=== PATIENT | male | born 1965 | race Caucasian/White ===

== ENCOUNTER 2016-07-19 09:02 | Inpatient (IN) | payer MEDICAID ==
[2016-07-19] MEDS ORDERED: Pantoprazole IV* 40 MG IV ONE (09:28)
[2016-07-19] MEDS ORDERED: NS 0.9% 1000 ML* 1,000 ML IV ONE (09:28)
[2016-07-19] MEDS ORDERED: LORazepam INJ* 2 MG/ML 1 ML VIAL IV PUSH ONE ×2 (09:30→10:03)
[2016-07-19 09:53] LABS: Hematocrit 30 % (42-52); Hemoglobin 10.1 g/dl (14.0-18.0); Mean Corpuscular HGB Conc 33 g/dl (31-36); Mean Corpuscular Hemoglobin 31 pg (27-31); Mean Corpuscular Volume 94 fL (80-94); Mean Platelet Volume 8 um3 (7.4-10.4); Red Blood Count 3.24 10^6/ul (4.0-5.4); Red Cell Distribution Width 17 % (10.5-15); White Blood Count 6.8 10^3/ul (3.5-10.8)
[2016-07-19] MEDS ORDERED: Thiamine IV* 100 MG, Folic Acid IV* 1 MG, Multiple Vitamin IV ADULT* 10 ML in NS 0.9% 1... IV ONE (10:03)
[2016-07-19 10:10] LABS: Albumin 2.7 g/dL (3.2-5.2); BUN/Creatinine Ratio 10.8 (8-20); C Reactive Protein 45.61 mg/L (< 5.00); Calcium 7.9 mg/dL (8.6-10.3); EGFR African American 167.9 (>60); EGFR Non-African American 130.6 (>60); Globulin 6.2 g/dL (2-4); Magnesium 2.1 mg/dL (1.9-2.7); Potassium 3.4 mmol/L (3.5-5.0); Total Bilirubin 1.4 mg/dL (0.2-1.0); Total Protein 8.9 g/dL (6.4-8.9)
[2016-07-19 10:12] LABS: Troponin I 0.01 ng/mL (<0.04)
[2016-07-19] MEDS ORDERED: Iohexol 300* (CONTRAST) 10 ML SDV IV ONE (11:43)
--- NOTE | 2016-07-19 12:35 | RAD ---
INDICATION: Abdominal pain, chronic constipation and abdominal bloating. COMPARISON: There are no prior studies available for comparison. TECHNIQUE: A CT scan of the abdomen and pelvis was performed with intravenous and oral contrast following intravenous injection of 130 ml of Omnipaque 300 nonionic contrast. Contiguous axial sections were obtained from the lung bases through the symphysis pubis. Images were reconstructed in the coronal and sagittal planes. FINDINGS: Images through the lung bases demonstrate small dependent bilateral lower lobe infiltrates. No pleural effusion is present. The liver is moderately enlarged and decreased in density. The liver has a nodular contour consistent with cirrhotic morphology. There are 2 hypodense lesions present in the inferior portion of the right hepatic lobe located adjacent to each other measuring 1.5 x 1.1 cm in size each possibly representing cysts. On the delayed images there appear to be multiple small hepatic nodules. No intra or extra hepatic ductal distention is present. The portal vein appears patent. The gallbladder is distended. No calcific gallstones are seen. No gallbladder wall thickening is appreciated. The spleen is mildly enlarged without focal abnormality. There appear to be varices within the splenic hilar region. The pancreas appears to be within normal limits in size without focal abnormality or ductal distention. The kidneys and adrenal glands are normal in size. No hydronephrosis is seen. No significant focal renal abnormality is seen. The aorta is normal in caliber with mild calcific plaque present. No significant enlarged retroperitoneal lymph nodes are seen. The stomach, small and large bowel appear nondistended. The appendix is within normal limits. There is no evidence for diverticulitis or colitis. There is mild to moderate descending and sigmoid diverticulosis. There is a small to moderate amount of free intraperitoneal fluid present throughout the abdomen and pelvis. No free intraperitoneal air is seen. No significant focal osseous abnormality is seen. IMPRESSION: 1. HEPATOSPLENOMEGALY AND FINDINGS CONSISTENT WITH CIRRHOSIS. IN ADDITION THERE ARE MULTIPLE SMALL HEPATIC NODULES NOTED ON DELAYED IMAGING. RECOMMEND AN MRI OF THE LIVER WITHOUT AND WITH CONTRAST FOR FURTHER EVALUATION. 2. SPLENIC VARICES CONSISTENT WITH PORTAL HYPERTENSION. 3. DISTENDED GALLBLADDER, RECOMMEND A RIGHT UPPER QUADRANT ULTRASOUND FOR FURTHER EVALUATION. 4. ASCITES.
[2016-07-19] MEDS ORDERED: Phytonadione Oral Solution* 5 MG/25 ML UDC PO ONE (12:54)
--- NOTE | 2016-07-19 13:06 | ED ---
Terrell Reyes Salem, scribed for Darvin Silva MD on 07/19/16 at 0924 . Abdominal Pain/Male - HPI Summary HPI Summary: Patient is a 51 y/o male who presents to the ED with constipation since 3-4 weeks. He reports a distended abd, 5-7/10 intermittent lower abd pain, occasional gas, diuretic BM, chills, loss of appetite, and dark colored stool , but denies fever, ecchymosis, SOB, CP, or epistaxis that has changed from baseline. He states his gums are bleeding, but he has not had his teeth cleaned in a long time. He also states that, in the last couple of weeks, he has been getting winded while walking. Pt denies any recent travels or past SHx of the abd. He states that he has drunk about a gallon of water and has tried Senna and Prune juice with little relief. Pt no longer smokes, but has a substantial EtOH hx. He reports that he was consuming EtOH all day long in the month of May. 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 - History of Current Complaint Chief Complaint: EDAbdPain Stated Complaint: ABD PAIN/CONSTIPATION Time Seen by Provider: 07/19/16 09:15 Hx Obtained From: Patient, Family/Dielectric Tester - . Onset/Duration: Gradual Onset, Lasting Weeks, Still Present Timing: Intermittent - Pain. Severity Initially: Moderate Severity Currently: Moderate Pain Intensity: 5 Pain Scale Used: 0-10 Numeric Location: Discrete At: LUQ, Discrete At: LLQ Radiates: No Aggravating Factor(s): Nothing Alleviating Factor(s): Nothing Associated Signs And Symptoms: Negative: Fever, Chest Pain - Allergies/Home Medications Allergies/Adverse Reactions: Allergies Allergy/AdvReac Type Severity Reaction Status Date / Time No Known Allergies Allergy Verified 07/19/16 09:19 PMH/Surg Hx/FS Hx/Imm Hx Previously Healthy: Yes Infectious Disease History: No Infectious Disease History: Denies: Traveled Outside the [place] in Last 30 Days - Family History Known Family History: Positive: Cardiac Disease, Diabetes, Other - CA. - Social History Alcohol Use: Daily Alcohol Amount: 5-7 drinks daily Hx Substance Use: No Substance Use Type: Reports: None Smoking Status (MU): Former Smoker - Quit in 2000. Review of Systems Positive: Chills. Negative: Fever Positive: Other - Bleeding gums. No epistaxis. No ecchymosis. Negative: Chest Pain Negative: Shortness Of Breath Positive: Abdominal Pain - Lower. , Other - Distended abd. Occasional gas. Diuretic BM." Loss of appetite. Positive: other - Dark colored stool. All Other Systems Reviewed And Are Negative: Yes Physical Exam Triage Information Reviewed: Yes Vital Signs On Initial Exam: Initial Vitals Temp Pulse Resp BP Pulse Ox 98.4 F 118 16 154/98 100 07/19/16 09:06 07/19/16 09:06 07/19/16 09:06 07/19/16 09:06 07/19/16 09:06 Vital Signs Reviewed: Yes Appearance: Positive: No Pain Distress Skin: Positive: Warm, Skin Color Reflects Adequate Perfusion Head/Face: Positive: Normal Head/Face Inspection Eyes: Positive: Normal, EOMI ENT: Positive: Other - some bleeding from gingiva Neck: Positive: Supple, Nontender Respiratory/Lung Sounds: Positive: Clear to Auscultation, Breath Sounds Present Cardiovascular: Positive: Normal, Tachycardia. Negative: Murmur Abdomen Description: Positive: Distended, Other: - rectal exam with dark colored stool no gross blood.. Negative: Guarding Musculoskeletal: Positive: Normal, Strength/ROM Intact, Edema Left - trace, Edema Right - trace Neurological: Positive: Normal, Sensory/Motor Intact, Alert, Oriented to Person Place, Time, CN Intact II-III - [place] Coma Scale Coma Scale Total: 15 Diagnostics - Vital Signs Vital Signs Temp Pulse Resp BP Pulse Ox 07/19/16 09:12 98.9 F 113 18 149/98 98 07/19/16 09:06 98.4 F 118 16 154/98 100 - Laboratory Result Diagrams: 07/19/16 09:30 07/19/16 09:30 Lab Statement: Any lab studies that have been ordered have been reviewed, and results considered in the medical decision making process. - CT ABD/PELVIS CT Interpretation Completed By: Radiologist - IMPRESSION: 1. HEPATOSPLENOMEGALY AND FINDINGS CONSISTENT WITH CIRRHOSIS. IN ADDITION THERE ARE MULTIPLE SMALL HEPATIC NODULES NOTED ON DELAYED IMAGING. RECOMMEND AN MRI OF THE LIVER WITHOUT AND WITH CONTRAST FOR FURTHER EVALUATION. 2. SPLENIC VARICES CONSISTENT WITH PORTAL HYPERTENSION. 3. DISTENDED GALLBLADDER, RECOMMEND A RIGHT UPPER QUADRANT ULTRASOUND FOR FURTHER EVALUATION. 4. ASCITES. - EKG 0917 EKG Interpretation: Sinus tachycardia @ 116 bpm. No STEMI. Abdominal Pain Fem Course/Dx - Course Course Of Treatment: 51 y/o male who presents with constipation since 3-4 weeks. He reports a distended abd, 5-7/10 intermittent lower abd pain, occasional gas, diuretic BM, chills, loss of appetite, bleeding gums, and dark colored stool, but denies fever, ecchymosis, SOB, CP, or epistaxis. Pt has a substantial EtOH hx. He received IV fluids, Lorazepam, Thiamine, Iohexol, and Pantoprazole. EKG reveals sinus tachycardia @ 116 bpm and no STEMI. CT reveals, per radiology, 1. Hepatosplenomegaly and findings consistent with cirrhosis. In addition there are. Multiple small hepatic nodules noted on delayed imaging. Recommend an mri of the liver without and with contrast for further evaluation. 2. Splenic varices consistent with portal hypertension. 3. Distended gallbladder , recommend a right upper quadrant ultrasound for further evaluation. 4. Ascites. - Diagnoses Provider Diagnoses: Alcohol withdrawal, Cirrhosis of liver - Provider Notifications Discussed Care Of Patient With: Dr Amado for admission Time Discussed With Above Provider: 13:05 - Critical Care Time Critical Care Time: 30-74 min - total critical care time 45 minutes. The patient was tremulous, and shaking and in withdrawl from ETOH along with sinus tachycardia. Discharge - Discharge Plan Condition: Fair Disposition: ADMITTED TO [facility] The documentation as recorded by the Terrell peter Salem accurately reflects the service I personally performed and the decisions made by , Darvin Silva MD.
[2016-07-19 13:32] LABS: PCO2 Arterial 35 mmHg (35-45)
[2016-07-19 13:35] LABS: Urine Bilirubin Negative (Negative); Urine Glucose Negative (Negative); Urine Nitrite Negative (Negative)
[2016-07-19 15:22] LABS: Albumin 2.3 g/dL (3.2-5.2); BUN/Creatinine Ratio 8.9 (8-20); Calcium 7.3 mg/dL (8.6-10.3); EGFR African American 199.4 (>60); EGFR Non-African American 155.1 (>60); Globulin 5.2 g/dL (2-4); Potassium 3.3 mmol/L (3.5-5.0); Total Bilirubin 1.5 mg/dL (0.2-1.0); Total Protein 7.5 g/dL (6.4-8.9)
[2016-07-19] MEDS: LORazepam TAB(*) 1 MG PO SCH (16:11)
--- NOTE | 2016-07-19 17:25 | HP ---
HISTORY AND PHYSICAL: DATE OF ADMISSION: 07/19/16 PRIMARY CARE PHYSICIAN: The patient has no PCP. CHIEF COMPLAINT: Abdominal distention, constipation. HISTORY OF PRESENT ILLNESS: Mr. Cross is a 51-year-old man with little medical followup and reports no past medical history who presents to the hospital with 3 to 4 weeks of abdominal distention and occasional constipation. History is taken primarily from the patient's as the patient is having difficulty staying awake during the examination. Since the patient's symptoms began around 3 to 4 weeks ago, where he noticed his abdomen becoming more distended and also some mild lower extremity swelling. He felt constipated and says he would try senna, prune juice and some other medications, which was seemed to work occasionally; however, the distention and discomfort would shortly recur. His symptoms have been persistent over this time and he has also had some decreased p.o. intake, although no nausea and vomiting. His denies any confusion, although he has been sleeping a lot throughout the day, snoring very loudly at times. The patient and his have a daughter, who is currently in the hospital, so there has been a lot of stress lately. The patient states he has been drinking probably at least 5 to 6 drinks a day, which are usually glasses of wine. He has been drinking heavily for years now. The patient's states, he occasionally had some chills over the past days and some slight warmth; however, no temperature was taken and it seemed mild at that time and resolved with aspirin. The patient denies any history of liver disease and never had any alcohol withdrawal and has never been hospitalized before. The patient went to [facility] today and they were concerned and thought he may have an enlarged liver and told him to come to the hospital for further evaluation. The patient states his last drink was around 3 to 4 a.m. early this morning on 07/19/16. PAST MEDICAL HISTORY: Negative. PAST SURGICAL HISTORY: None. HOME MEDICATIONS: None, the patient has no PCP. ALLERGIES: The patient reports no known drug allergies. FAMILY HISTORY: Significant for his father with diabetes. REVIEW OF SYSTEMS: A 12-point review of systems is significant for lower extremity edema, gingival bleeding and the remainder of the 12-point systems is pertinent for the symptoms listed in the HPI. PHYSICAL EXAMINATION GENERAL: The patient is a middle-aged disheveled, man lying in bed, awakens at voice, but is lethargic and will quickly fall back to sleep. VITAL SIGNS: On admission, temperature 98.4, heart rate of 118, O2 saturation 100%, blood pressure 154/98. HEENT: Pupils are equal, round, and reactive light and accommodation. Possibly some minimal scleral icterus. Dry mucous membranes. The patient has dry blood on his gums and tongue and posterior oropharynx. LUNGS: Clear to auscultation bilaterally. No wheezes, rales, or rhonchi. CARDIOVASCULAR: Tachycardic. No murmurs, gallops, or rubs. ABDOMEN: Soft, distended, nontender to palpation. The patient with hepatosplenomegaly and positive fluid wave. EXTREMITIES: Mild lower extremity edema. NEURO: The patient is lethargic, awakens to voice and is alert and oriented x3 ; however, quickly falls back to sleep. No asterixis is noted. No neurological deficits. LABS AND DIAGNOSTICS: White blood cell count of 6.8, hematocrit of 30, platelets of 124. INR of 1.47. Sodium of 136, potassium 3.4, chloride of 106, carbon dioxide of 25, BUN of 7, creatinine of 0.65, glucose of 109, lactic acid of 1.5, calcium of 7.9, total bilirubin of 1.4, AST of 157, ALT of 34, alk phos of 250. Troponin of 0.01, CRP of 45, lipase of 125, serum alcohol 229. EKG personally reviewed shows sinus tachycardia, no acute ischemic changes. CT of the abdomen and pelvis shows hepatosplenomegaly and findings consistent with cirrhosis. In addition, there are multiple small hepatic nodules noted on delayed imaging. Recommended MRI of liver with and without contrast for further evaluation of splenic varices consistent with portal hypertension, distended gallbladder; ascites, which is mild to moderate. ASSESSMENT AND PLAN: New onset cirrhosis, likely secondary to alcohol abuse and alcoholic hepatitis in a 51-year-old man with no reported past medical history. 1. Cirrhosis, ascites: CT imaging consistent with cirrhosis, which is likely due to the patient's alcohol intake. With the patient's new ascites, he will need a diagnostic paracentesis, which has been ordered and would likely happen tomorrow. I will give the patient some vitamin K for his mildly elevated INR. He is showing some signs of synthetic liver dysfunction between the INR and thrombocytopenia and a low albumin. With the patient's lethargy, I will order a blood gas as well as an ammonia. We will continue to trend his LFTs for now. I have stressed the importance of complete alcohol cessation from this point, which he is agreeable to. Placed a social work consult. I will hold off on any diuretics at this point, can reevaluate tomorrow. We will hold off on any additional imaging for now in regards to the liver lesions, I will send off an AFP. 2. Alcohol abuse and early withdrawal symptoms: The patient still has some EtOH in his system at this point; however, I am certain he will withdrawal over the next day or two. We will write for [place] protocol with ibis Perkins and will continue thiamine, folate and multivitamin. The patient does have a mild biochemical pancreatitis. We will keep him just on clear liquids for now. Can recheck a lipase in the morning. He is not endorsing any epigastric pain at this time. 3. Gingival bleeding: Likely a combination of poor dentition and possibly due to his thrombocytopenia, although, it is not severe. The states that this has been going on for months with near constant oozing from his gums. He will need a dental appointment as an outpatient. 4. DVT prophylaxis: SCDs. 5. Code status: The patient is full code. The patient's surrogate decision maker is his , Taty Cross, phone number . TIME SPENT: Total time spent on this admission 50 minutes with over half the time spent [id number] with the patient counseling and coordinating care. [id number]/[facility] #: [id number] BRODERICK
[2016-07-19] MEDS: Morphine INJ* 2 MG/ML 1 ML SYRINGE IV PRN (19:21)
[2016-07-20] MEDS: LORazepam TAB(*) 1 MG PO SCH ×8 (00:46→22:58)
[2016-07-20 07:53] LABS: Albumin 2.6 g/dL (3.2-5.2); BUN/Creatinine Ratio 7.5 (8-20); Calcium 8.2 mg/dL (8.6-10.3); EGFR African American 162.1 (>60); EGFR Non-African American 126.1 (>60); Globulin 6.1 g/dL (2-4); Potassium 3.7 mmol/L (3.5-5.0); Total Bilirubin 2.7 mg/dL (0.2-1.0); Total Protein 8.7 g/dL (6.4-8.9)
[2016-07-20 08:16] LABS: Hematocrit 29 % (42-52); Hemoglobin 9.7 g/dl (14.0-18.0); Mean Corpuscular HGB Conc 33 g/dl (31-36); Mean Corpuscular Hemoglobin 31 pg (27-31); Mean Corpuscular Volume 94 fL (80-94); Mean Platelet Volume 8 um3 (7.4-10.4); Red Blood Count 3.12 10^6/ul (4.0-5.4); Red Cell Distribution Width 17 % (10.5-15); White Blood Count 6.8 10^3/ul (3.5-10.8)
[2016-07-20] MEDS: Thiamine TAB* 100 MG TAB PO SCH (08:39)
[2016-07-20] MEDS: Folic Acid TAB* 1 MG PO SCH (08:39)
[2016-07-20] MEDS: Multivitamins/Minerals TAB PO SCH (08:39)
[2016-07-20] MEDS: ceFAZolin 1 GM in Dextrose (*) 1 GM/50 ML BAG IVPB SCH ×3 (09:58→23:00)
--- NOTE | 2016-07-20 14:35 | RAD ---
INDICATION: New cirrhosis, ascites. COMPARISON: Comparison is made with a prior CT of the abdomen and pelvis from one day earlier. TECHNIQUE: The benefits and risks of the procedure were explained to the patient. The patient consented to the exam. A timeout was performed before beginning the procedure. Multiple images of the abdomen were obtained. There was a moderate of ascites within the abdomen and pelvis. The largest pocket of fluid was chosen for the paracentesis which was in the left lower quadrant. The patient was prepped and draped in the usual sterile fashion. The patient's anterior abdominal wall was anesthetized with 1% lidocaine. A small skin neck was made to admit the paracentesis needle and catheter. Approximately 2 L of a serous fluid was removed. The patient tolerated the procedure well without incident. IMPRESSION: ULTRASOUND-GUIDED PARACENTESIS.
[2016-07-20 15:16] LABS: Body Fluid WBC 359 /mcL
--- NOTE | 2016-07-20 15:55 | PN ---
Subjective Date of Service: 07/20/16 Interval History: Seen and examined with at bedside Feels tremulous and anxious denies [place]OR[place], N/V, LH, CP, hallucinations Objective Active Medications: Folic Acid (Folvite Tab*) 1 mg PO DAILY [facility] Last Admin: 07/20/16 08:39 Dose: Not Given Cefazolin Sodium/Dextrose (Kefzol 1 Gm In Dextrose Duplex (*)) 1 gm in 50 mls @ 200 mls/hr IVPB Q6H [facility] Last Admin: 07/20/16 09:58 Dose: 200 mls/hr Lorazepam (Ativan Tab(*)) 0 mg PO .PER WAM SCORE [facility] PRN Reason: Protocol Last Admin: 07/20/16 12:09 Dose: 3 mg Morphine Sulfate (Morphine Inj (Syringe)*) 2 mg IV Q4H PRN PRN Reason: PAIN Last Admin: 07/19/16 19:21 Dose: 2 mg Multivitamins/Minerals (Theragran/Minerals Tab*) 1 tab PO DAILY [facility] Last Admin: 07/20/16 08:39 Dose: Not Given Thiamine HCl (Vitamin B-1 Tab*) 100 mg PO DAILY [facility] Last Admin: 07/20/16 08:39 Dose: Not Given Vital Signs 07/19/16 07/19/16 07/19/16 15:59 16:11 17:54 Temperature 98.5 F 99.1 F Pulse Rate 106 108 Respiratory 18 24 20 Rate Blood Pressure 154/89 140/72 (mmHg) O2 Sat by Pulse 95 93 Oximetry 07/19/16 07/19/16 07/19/16 18:11 19:21 19:42 Temperature Pulse Rate Respiratory 20 20 20 Rate Blood Pressure (mmHg) O2 Sat by Pulse Oximetry 07/19/16 07/19/16 07/19/16 20:21 20:45 22:53 Temperature 99.2 F 98.4 F Pulse Rate 100 94 Respiratory 19 20 18 Rate Blood Pressure 132/78 155/69 (mmHg) O2 Sat by Pulse 95 95 Oximetry 07/20/16 07/20/16 07/20/16 00:09 00:46 01:53 Temperature 99.4 F 100.0 F Pulse Rate 114 99 Respiratory 20 19 18 Rate Blood Pressure 158/94 120/70 (mmHg) O2 Sat by Pulse 95 96 Oximetry 07/20/16 07/20/1607/20/17 02:46 03:46 04:56 Temperature 99.2 F Pulse Rate 110 Respiratory 20 20 20 Rate Blood Pressure 152/73 (mmHg) O2 Sat by Pulse 98 Oximetry 07/20/16 07/20/16 07/20/16 06:22 06:43 07:26 Temperature 98.8 F 98.2 F Pulse Rate 115 115 Respiratory 20 20 20 Rate Blood Pressure 160/69 137/68 (mmHg) O2 Sat by Pulse 97 93 Oximetry 07/20/16 07/20/16 07/20/16 08:00 08:37 10:17 Temperature Pulse Rate 107 Respiratory 18 18 Rate Blood Pressure (mmHg) O2 Sat by Pulse 95 Oximetry 07/20/16 07/20/16 07/20/16 10:37 12:09 14:09 Temperature Pulse Rate Respiratory 18 18 18 Rate Blood Pressure (mmHg) O2 Sat by Pulse Oximetry 07/20/16 15:01 Temperature 99.6 F Pulse Rate 117 Respiratory 26 Rate Blood Pressure 148/71 (mmHg) O2 Sat by Pulse 95 Oximetry Oxygen Devices in Use Now: None Appearance: tremulous, NAD Eyes: No Scleral Icterus, PERRLA Ears/Nose/Mouth/Throat: - - blood on lips, dry MM Respiratory: Symmetrical Chest Expansion and Respiratory Effort, Clear to Auscultation Cardiovascular: RRR, - - tachy Abdominal: NL Sounds; No Tenderness; No Distention, No Hepatosplenomegaly Lymphatic: No Cervical Adenopathy Extremities: No Edema, No Clubbing, Cyanosis Neurological: Alert and Oriented x 3, - - +tongue fasiculations and asterixisis Result Diagrams: 07/20/16 05:31 07/20/16 05:32 Microbiology and Other Data: Microbiology 07/20/16 14:00 Gram Stain - Final Body Fluid - Peritoneal 07/20/16 06:15 Stool Occult Blood ([place]) - Final Stool Assess/Plan/Problems-Billing Assessment: 51 yo M h/o etoh abuse p/w abdominal bloating found new onset cirrhosis, ascites , 1/4 bcx MSSA - Patient Problems (1) Cirrhosis Comment: In setting of EtOH Paracentesis 07/20, labs pending aldactone when stable (2) Alcohol withdrawal Comment: 1st episode c/w WAM (3) Bacteremia Comment: 1 out of 4 bottles potential contaminant will c/w cafazolin (4) DVT prophylaxis Comment: HSQ
[2016-07-20 16:05] LABS: Body Fluid Total Cells Counted 100
[2016-07-20 16:06] LABS: Body Fluid Appearance Clear
--- NOTE | 2016-07-20 21:18 | RAD ---
INDICATION: Cirrhosis. Evaluate gallbladder. COMPARISON: CT July 19, 2016 TECHNIQUE: Longitudinal and transverse scans of the right upper quadrant were obtained. Doppler interrogation of the hepatic and portal venous system was performed. FINDINGS: Liver: The liver is heterogeneous in echotexture. No discrete hepatic mass is identified. MR imaging was suggested on the basis of the earlier CT. The liver is enlarged measuring 24.1 in cephalocaudal dimension. Vessels: There is limited evaluation of the hepatic and portal venous vessels. The recent CT showed portal venous patency. There is a correction of flow in the intrahepatic portal branches. Bile ducts: There is no evidence of intrahepatic or extrahepatic ductal dilatation. The common duct measures 0.3 cm. Gallbladder: There is thickening of the gallbladder wall which could be related to ascites and hypoproteinemia. There is no evidence of cholelithiasis. Pancreas: The visualized pancreas appears normal Right kidney: The right kidney is normal in size and echogenicity. There are no masses or calculi. There is no evidence of hydronephrosis. The right kidney measures 12.9 x 5.3 x 6.4 cm. IVC and aorta: The aorta and superior vena cava appear normal. Fluid: There is ascites. Other: There is splenomegaly. The spleen measures 14.4 x 4.3 x 4.4 cm. IMPRESSION: Hepatosplenomegaly. Ascites. Gallbladder wall thickening may be related to ascites or hypoproteinemia. There is no evidence of cholelithiasis
[2016-07-20] MEDS: Heparin VIAL(*) 5000 UNITS/ML VIAL (FIVE THOUSAND) SUBCUT SCH (23:04)
[2016-07-21] MEDS ORDERED: Acetaminophen TAB* 325 MG PO PRN ×2 (00:24→11:02)
[2016-07-21] MEDS ORDERED: LORazepam INJ* 2 MG/ML 1 ML VIAL IV PUSH ONE ×2 (00:25→03:03)
[2016-07-21] MEDS: LORazepam TAB(*) 1 MG PO SCH ×3 (01:26→06:16)
[2016-07-21] MEDS ORDERED: LORazepam INJ* 2 MG/ML 1 ML VIAL ONE (03:05)
[2016-07-21] MEDS ORDERED: Ziprasidone IM INJ* 20 MG/ML VIAL IM ONE (03:39)
[2016-07-21] MEDS: ceFAZolin 1 GM in Dextrose (*) 1 GM/50 ML BAG IVPB SCH ×4 (04:53→21:10)
[2016-07-21] MEDS: Heparin VIAL(*) 5000 UNITS/ML VIAL (FIVE THOUSAND) SUBCUT SCH ×3 (06:21→21:10)
[2016-07-21 06:50] LABS: Hematocrit 27 % (42-52); Mean Corpuscular HGB Conc 33 g/dl (31-36); Mean Corpuscular Hemoglobin 31 pg (27-31); Mean Corpuscular Volume 93 fL (80-94); Mean Platelet Volume 9 um3 (7.4-10.4); Red Blood Count 2.94 10^6/ul (4.0-5.4); Red Cell Distribution Width 17 % (10.5-15); White Blood Count 7.3 10^3/ul (3.5-10.8)
[2016-07-21 07:07] LABS: Albumin 2.5 g/dL (3.2-5.2); BUN/Creatinine Ratio 13.4 (8-20); Calcium 8.1 mg/dL (8.6-10.3); Direct Bilirubin 1.9 mg/dL (0.03-0.18); EGFR African American 162.1 (>60); EGFR Non-African American 126.1 (>60); Globulin 5.8 g/dL (2-4); Indirect Bilirubin 1.3 mg/dL (0.3-1.0); Potassium 3.6 mmol/L (3.5-5.0); Total Bilirubin 3.2 mg/dL (0.2-1.0); Total Protein 8.3 g/dL (6.4-8.9)
--- NOTE | 2016-07-21 07:48 | RAD ---
HISTORY: Shortness of breath COMPARISONS: None VIEWS:1: Single frontal portable view of the chest at 12:48 AM FINDINGS: LINES AND TUBES: None. CARDIOMEDIASTINAL SILHOUETTE: The cardiomediastinal silhouette is normal for portable technique. PLEURA: The costophrenic angles are sharp. No pleural abnormalities are noted. LUNG PARENCHYMA: The lung volumes are low. There is minimal linear atelectasis versus pleural parenchymal scarring of the right lung base ABDOMEN: The upper abdomen is clear. There is no subphrenic gas. BONES AND SOFT TISSUES: No bone or soft tissue abnormalities are noted. IMPRESSION: LOW LUNG VOLUMES. NO ACTIVE CARDIOPULMONARY DISEASE.
[2016-07-21] MEDS: NS 0.9% 1000 ML* 1,000 ML IV SCH ×2 (08:43→14:39)
[2016-07-21] MEDS: Folic Acid TAB* 1 MG PO SCH (09:16)
[2016-07-21] MEDS: Multivitamins/Minerals TAB PO SCH (09:17)
[2016-07-21] MEDS: Thiamine TAB* 100 MG TAB PO SCH (09:17)
[2016-07-21] MEDS ORDERED: Propofol* 100 ML ONE (10:24)
[2016-07-21] MEDS ORDERED: fentaNYL* 50 MCG/ML 5 ML VIAL (250 MCG VIAL) ONE (10:24)
[2016-07-21] MEDS ORDERED: fentaNYL* 50 MCG/ML 2 ML VIAL (100 MCG VIAL) IV SLOW PU ONE (10:55)
[2016-07-21] MEDS ORDERED: Propofol* 10 MG/ML 20 ML BTL IV PUSH ONE (10:57)
[2016-07-21] MEDS ORDERED: Ondansetron INJ* 2 MG/ML VIAL IV PRN (11:02)
--- NOTE | 2016-07-21 11:46 | RAD ---
INDICATION: The patient is status post intubation and gastric tube placement COMPARISON: Chest x-ray dated July 20, 2016 TECHNIQUE: Single AP portable view of the chest was obtained. FINDINGS: Image quality is compromised due to the relative inferiority of a portable chest x-ray. Endotracheal tube terminates just below the level the clavicular heads 3.9 cm above the tanja. A gastric tube is seen below the level of the diaphragm with the tip terminating at the expected vicinity of the gastric antrum. The heart and mediastinum exhibit normal size and contour. The lungs are grossly clear. There is no evidence of a large pleural effusion. Visualized bones are normal for the patient's age. IMPRESSION: Interval placement of a properly positioned endotracheal and gastric tubes.
[2016-07-21] MEDS ORDERED: Phytonadione Oral Solution* 5 MG/25 ML UDC PO ONE (12:00)
[2016-07-21] MEDS: Multivitamins ADULT w/MIN LIQ* 15 ML UDC PO SCH (12:20)
[2016-07-21] MEDS: Chlorhexidine MOUTHWASH 0.12%* 15 ML UDC TOPICAL SCH ×4 (12:20→23:42)
[2016-07-21] MEDS: LANSOPRAZOLE G TUBE SCH (12:21)
--- NOTE | 2016-07-21 14:19 | PN ---
Progress Note - Progress Note Note: CRITICAL CARE MEDICINE PROCEDURE NOTE DATE: 07/21/16 TIME: 1030 SERVICE: Critical Care Medicine LOCATION OF PROCEDURE: ICU PROCEDURE: Endotracheal intubation PROCEDURALIST: Dr. West Consent obtain: Yes, consent from , procedure performed emergently Time out held: Not indicated INDICATION: Acute respiratory failure secondary to DTs. PROCEDURE: Oxygenation maintained and vitals monitored. Patient in supine position. Pre-medication with fentanyl 200mcg / propofol 50mg. Glidescope #3 inserted with Grade 1 view obtained. 8.0 endotracheal tube inserted to 24cm lip. Good chest rise with breath sounds appreciated in bilaterally lung reinoso. EtCO2 + color change. Portable chest x-ray with ett in good position. Patient otherwise tolerated well. Rangel West, DO
[2016-07-21] MEDS ORDERED: Magnesium Sulf 4 GM/100 ML IV* 4,000 MG/100 ML BAG IVPB ONE (15:42)
--- NOTE | 2016-07-21 15:48 | PN ---
Progress Note - Progress Note Note: CRITICAL CARE MEDICINE DATE: 07/21/16 TIME: 950 SUBJECTIVE: Patient seen and examined. Sent to ICU sec to further obtundation. Recivieved ativan for DT tx overnight and more obtunded today with withdrawal sx. PHYSICAL EXAM: Vital Signs: Reviewed. tachy, tachypnea Neurologic: awakens and follows some commands, C[place], but obtunded. HEENT: mm with dry blood, icteric, perrl Cardiovascular: distant, tachy Respiratory: coarse b/l, paradoxical breathing Abdomen: soft, mild distention, non appreciable fluid wave Extremities: warm Access: piv LABS: Reviewed. IMAGING: Reviewed. MEDICATIONS: Reviewed. ASSESSMENT: 51 M Acute etoh withdrawal/DTs Acute hypoxic resp failure sec to above Multifactorial encephalpathy Anemia of etoh abuse Coagulopathy sec to above Hyponatremia sec to above Malnutrition mod degree, sec to above PLAN: Neurologic: only recived low dose ativan for his degree of withdrawal and already obtunded with multifactorial encephalopathy. Early phase of withdrawal sympathetics and high brian response, as he presented with etoh level >220 and will need escalating rx and needs airway protection for such. propofol gtt. thiamine, vitamin replacements. Cardiovascular: Perfusing, can utilize some ivf today and then just via ogt Respiratory: intubation for airway understanding his course will only escalate. Already with likely aspiration and continued mm bleeding sec to plt qualitative dysfunction. Gastrointestinal: place ogt and start tf. f/u ammonia and need for lactulose as well as lft dysfunction which may still rise post etoh cessation Renal/Metabolic: f/u and replete lytes, zhao needed Infectious Disease: was placed on ancef for cutlure result. can keep for today and ensure cx neg prior to stopping. no other infectious signs. Hematology: mm bleeding sec to plt qualitative dysfunction. ddavp noty necessary yet. vitamin replacement. hsq Endocrine: f/u needs Musculoskeletal: bedrest today Psych/Social: updated Supportive and preventative care as ordered. SUP: ppi VTE prophylaxis: heparin Zhao catheter given critical illness, monitoring needs for accurate assessment of ADA and KDIGO criteria for critically ill patients and to avoid potential harms of urinary retention, skin breakdown/ulcers. Disposition: ICU Code Status: Full Critical Care Time: 45min Rangel West DO
--- NOTE | 2016-07-21 17:23 | PN ---
Subjective Date of Service: 07/21/16 Interval History: Seen and examined this AM on 4S and again in ICU lethargic, difficult to arouse wakes to sternal rub but cannot stay awake RR >30 Moved to ICU where he was intubated Objective Active Medications: Acetaminophen (Tylenol Tab*) 650 mg PO Q6H PRN PRN Reason: FEVER/PAIN Chlorhexidine Gluconate (Peridex Mouth Wash 0.12%*) 15 ml TOPICAL Q4H [facility] Last Admin: 07/21/16 14:39 Dose: 15 ml Fentanyl Citrate (Fentanyl*) 50 mcg IV SLOW PU Q4H PRN PRN Reason: PAIN Folic Acid (Folvite Tab*) 1 mg PO DAILY [facility] Last Admin: 07/21/16 09:16 Dose: Not Given Heparin Sodium (Porcine) (Heparin Vial(*)) 5,000 units SUBCUT Q8HR [facility] Last Admin: 07/21/16 14:43 Dose: 5,000 units Cefazolin Sodium/Dextrose (Kefzol 1 Gm In Dextrose Duplex (*)) 1 gm in 50 mls @ 200 mls/hr IVPB Q6H [facility] Last Admin: 07/21/16 14:43 Dose: 200 mls/hr Sodium Chloride (Ns 0.9% 1000 Ml*) 1,000 mls @ 150 mls/hr IV PER RATE [facility] Stop: 07/22/16 15:24 Last Admin: 07/21/16 14:39 Dose: 150 mls/hr Propofol (Diprivan*) 100 mls @ 11.202 mls/hr IV .(Initial Rate) ROMAN; 20 MCG/KG/ MIN PRN Reason: Protocol Magnesium Sulfate (Magnesium Sulf 4 Gm/100 Ml Iv*) 4,000 mg in 100 mls @ 33.333 mls/hr IVPB ONCE ONE Stop: 07/21/16 18:41 Last Admin: 07/21/16 16:25 Dose: 33.333 mls/hr Lansoprazole (Lansoprazole Susp Kit) 30 mg G TUBE DAILY [facility] Last Admin: 07/21/16 12:21 Dose: 30 mg Lorazepam (Ativan Inj*) 2 mg IV PUSH Q3H PRN PRN Reason: ANXIETY Morphine Sulfate (Morphine Inj (Syringe)*) 2 mg IV Q4H PRN PRN Reason: PAIN Last Admin: 04/19/17 19:21 Dose: 2 mg Multivitamins (Theragran W/Minerals Liq*) 15 ml PO DAILY [facility] Last Admin: 07/21/16 12:20 Dose: 15 ml Ondansetron HCl (Zofran Inj*) 4 mg IV Q6H PRN PRN Reason: NAUSEA Thiamine HCl (Vitamin B-1 Tab*) 100 mg G TUBE TID [facility] Vital Signs 07/20/16 07/20/16 07/20/16 18:01 18:17 18:23 Temperature 101.3 F Pulse Rate 108 Respiratory 28 22 26 Rate Blood Pressure 141/82 (mmHg) O2 Sat by Pulse 93 Oximetry 07/20/16 07/20/16 07/20/16 19:52 20:00 20:23 Temperature 97.5 F Pulse Rate 113 Respiratory 28 22 22 Rate Blood Pressure 148/90 (mmHg) O2 Sat by Pulse 96 Oximetry 07/20/16 07/20/16 07/20/16 20:25 21:52 22:25 Temperature 99.8 F Pulse Rate 116 Respiratory 22 36 40 Rate Blood Pressure 145/73 (mmHg) O2 Sat by Pulse 86 Oximetry 07/20/16 07/20/16 07/20/16 22:30 22:54 22:58 Temperature 99.9 F Pulse Rate Respiratory 40 40 Rate Blood Pressure (mmHg) O2 Sat by Pulse 94 Oximetry 07/21/16 07/21/16 07/21/16 00:06 00:41 00:58 Temperature Pulse Rate 130 Respiratory 41 35 40 Rate Blood Pressure 149/85 (mmHg) O2 Sat by Pulse 91 Oximetry 07/21/16 07/21/16 07/21/16 01:16 01:26 01:41 Temperature 100.4 F Pulse Rate 126 Respiratory 42 40 40 Rate Blood Pressure 154/89 (mmHg) O2 Sat by Pulse 96 Oximetry 07/21/16 07/21/16 07/21/16 03:10 03:26 03:43 Temperature 100.5 F Pulse Rate 127 Respiratory 40 40 42 Rate Blood Pressure 122/94 (mmHg) O2 Sat by Pulse 95 Oximetry 07/21/16 07/21/16 07/21/16 03:50 04:10 05:54 Temperature 98.9 F Pulse Rate 121 Respiratory 42 40 36 Rate Blood Pressure 153/82 (mmHg) O2 Sat by Pulse 93 Oximetry 07/21/16 07/21/16 07/21/16 07:19 08:00 09:34 Temperature 99.1 F Pulse Rate 118 Respiratory 28 22 Rate Blood Pressure 148/77 120/82 (mmHg) O2 Sat by Pulse 95 Oximetry 07/21/16 07/21/16 07/21/16 09:45 09:46 09:51 Temperature 98.3 F Pulse Rate 108 110 Respiratory 28 28 33 Rate Blood Pressure 119/88 120/82 (mmHg) O2 Sat by Pulse 96 97 Oximetry 07/21/16 07/21/16 07/21/16 10:00 10:02 11:00 Temperature Pulse Rate 116 94 Respiratory 33 30 12 Rate Blood Pressure 130/88 102/64 (mmHg) O2 Sat by Pulse 97 100 Oximetry 07/21/16 07/21/16 07/21/16 11:06 11:13 11:56 Temperature Pulse Rate Respiratory 15 15 19 Rate Blood Pressure (mmHg) O2 Sat by Pulse Oximetry 07/21/16 07/21/16 07/21/16 12:00 12:03 12:39 Temperature 98.3 F Pulse Rate 96 96 Respiratory 19 20 21 Rate Blood Pressure 81/48 81/50 (mmHg) O2 Sat by Pulse 96 96 Oximetry 07/21/16 07/21/16 07/21/16 13:00 13:19 13:32 Temperature Pulse Rate 89 Respiratory 21 23 Rate Blood Pressure 86/55 (mmHg) O2 Sat by Pulse 97 99 Oximetry 07/21/16 07/21/16 07/21/16 14:00 14:33 15:00 Temperature Pulse Rate 92 92 Respiratory 22 24 23 Rate Blood Pressure 94/57 90/62 (mmHg) O2 Sat by Pulse 98 97 Oximetry 07/21/16 07/21/16 07/21/16 15:16 16:00 16:10 Temperature Pulse Rate 94 Respiratory 26 25 27 Rate Blood Pressure 94/58 (mmHg) O2 Sat by Pulse 95 Oximetry 07/21/16 07/21/16 17:00 17:04 Temperature Pulse Rate 96 Respiratory 23 23 Rate Blood Pressure 89/51 (mmHg) O2 Sat by Pulse 96 Oximetry Oxygen Devices in Use Now: Nasal Cannula Appearance: lethargic Ears/Nose/Mouth/Throat: - - blood on lips and clots seen in OP Respiratory: Symmetrical Chest Expansion and Respiratory Effort, - - decreased in bases Cardiovascular: - - tachy, regular Abdominal: NL Sounds; No Tenderness; No Distention, No Hepatosplenomegaly Lymphatic: No Cervical Adenopathy Extremities: No Edema Neurological: - - AOx0 Result Diagrams: 07/21/16 06:27 07/21/16 06:27 Microbiology and Other Data: Microbiology 07/20/16 14:00 Gram Stain - Final Body Fluid - Peritoneal 07/20/16 06:15 Stool Occult Blood ([place]) - Final Stool Assess/Plan/Problems-Billing Assessment: 51 yo M h/o etoh abuse p/w abdominal bloating found new onset cirrhosis, ascites , 1/4 bcx MSSA, transferred to ICU with DTs and intubated for airway protection 07/21 - Patient Problems (1) Cirrhosis Comment: In setting of EtOH Paracentesis 07/20, no SBP aldactone when stable (2) Alcohol withdrawal Comment: 1st episode transferred to ICU no intubated (3) Bacteremia Comment: 1 out of 4 bottles potential contaminant will c/w cafazolin (4) DVT prophylaxis Comment: HSQ
[2016-07-21] MEDS: Propofol* 100 ML IV SCH (17:36)
[2016-07-21] MEDS: Thiamine TAB* 100 MG TAB G TUBE SCH (20:57)
[2016-07-21] MEDS: fentaNYL* 50 MCG/ML 2 ML VIAL (100 MCG VIAL) IV SLOW PU PRN (21:37)
[2016-07-22] MEDS: Morphine INJ* 2 MG/ML 1 ML SYRINGE IV PRN (00:47)
[2016-07-22] MEDS: Propofol* 100 ML IV SCH ×4 (00:58→22:08)
[2016-07-22] MEDS: LORazepam INJ* 2 MG/ML 1 ML VIAL IV PUSH PRN (01:19)
[2016-07-22] MEDS: fentaNYL* 50 MCG/ML 2 ML VIAL (100 MCG VIAL) IV SLOW PU PRN ×2 (01:46→20:40)
[2016-07-22] MEDS: ceFAZolin 1 GM in Dextrose (*) 1 GM/50 ML BAG IVPB SCH ×4 (04:03→21:20)
[2016-07-22] MEDS: Chlorhexidine MOUTHWASH 0.12%* 15 ML UDC TOPICAL SCH ×6 (04:03→23:19)
[2016-07-22] MEDS: Heparin VIAL(*) 5000 UNITS/ML VIAL (FIVE THOUSAND) SUBCUT SCH ×3 (05:28→21:20)
[2016-07-22 05:55] LABS: Hematocrit 24 % (42-52); Hemoglobin 7.9 g/dl (14.0-18.0); Mean Corpuscular HGB Conc 33 g/dl (31-36); Mean Corpuscular Hemoglobin 31 pg (27-31); Mean Corpuscular Volume 94 fL (80-94); Mean Platelet Volume 8 um3 (7.4-10.4); Red Blood Count 2.58 10^6/ul (4.0-5.4); Red Cell Distribution Width 18 % (10.5-15); White Blood Count 11.2 10^3/ul (3.5-10.8)
[2016-07-22 06:11] LABS: Albumin 2.2 g/dL (3.2-5.2); BUN/Creatinine Ratio 21.9 (8-20); Calcium 7.4 mg/dL (8.6-10.3); EGFR African American 107.1 (>60); EGFR Non-African American 83.3 (>60); Globulin 5.2 g/dL (2-4); Magnesium 3.1 mg/dL (1.9-2.7); Potassium 3.6 mmol/L (3.5-5.0); Total Bilirubin 2.2 mg/dL (0.2-1.0); Total Protein 7.4 g/dL (6.4-8.9)
[2016-07-22] MEDS: LANSOPRAZOLE G TUBE SCH (08:34)
[2016-07-22] MEDS: Folic Acid TAB* 1 MG PO SCH (08:35)
[2016-07-22] MEDS: Thiamine TAB* 100 MG TAB G TUBE SCH ×3 (08:35→20:21)
[2016-07-22] MEDS: Multivitamins ADULT w/MIN LIQ* 15 ML UDC PO SCH (08:35)
[2016-07-22] MEDS ORDERED: Furosemide IV* 10 MG/ML VIAL (40 MG) IV SLOW PU ONE (10:00)
[2016-07-22] MEDS ORDERED: Potassium Chloride LIQUID* 20 MEQ PACKET G TUBE ONE (10:00)
[2016-07-22] MEDS: Spironolactone TAB* 25 MG G TUBE SCH (10:14)
[2016-07-22] MEDS: LACTULOSE* 30 ML UDC NG TUBE SCH ×2 (10:14→20:21)
--- NOTE | 2016-07-22 10:38 | PN ---
Progress Note - Progress Note Note: CRITICAL CARE MEDICINE DATE: 07/22/16 TIME: 1000 SUBJECTIVE: Patient seen and examined. PHYSICAL EXAM: Vital Signs: Reviewed. one temp for fever spike yesterday Neurologic: awakens on low dose propofol, but weak and not following commands yet. HEENT: mm with dry blood, icteric sclera, perrl Cardiovascular: distant, tachy Respiratory: coarse b/l, paradoxical breathing still with neg pressure breaths, better now on cpap Abdomen: soft, mild distention, no appreciable fluid wave Extremities: warm Access: piv LABS: Reviewed. IMAGING: Reviewed. MEDICATIONS: Reviewed. ASSESSMENT: 51 M Acute etoh withdrawal/DTs Acute hypoxic resp failure sec to above Multifactorial encephalpathy, including hepatic Anemia of etoh abuse Coagulopathy sec to above Hyponatremia sec to above Malnutrition mod degree, sec to above Staph aureus bacteremia Aspiration pneumonitis Gingival bleeding PLAN: Neurologic: lowering propofol gtt. prns. has less sympathetics. thiamine, vitamin replacements. Cardiovascular: Perfusing, vol ok to a bit up. can start on diuertic needs. Respiratory: intubation for airway mainly and see how he can maintain on less sedation. may still need a few days. Gastrointestinal: tf. lfts stable. ammonia up and starting lactulose. add rifixamin if not improving quickly. Renal/Metabolic: f/u and replete lytes Infectious Disease: on ancef for SA. Source questionable, but certainly can be from his degee of gingival bleeding or even aspiration. Keep on ancef for now. wbc relatively benign in his setting and only one fever spike recorded. If clinical course changes may need further investigation. Otherwise would repeat BC for clearance, as this would seem to be more related to transient bacteremia perhaps with his immunodeficiencies/liver disease. Hematology: mm bleeding slowly improved. vitamin replacement. hsq for now Endocrine: stable. Musculoskeletal: bedrest today given acuity Psych/Social: updated; daughter is inpatient upstairs Supportive and preventative care as ordered. SUP: ppi VTE prophylaxis: heparin Blue catheter given critical illness, monitoring needs for accurate assessment of ADA and KDIGO criteria for critically ill patients and to avoid potential harms of urinary retention, skin breakdown/ulcers. Disposition: ICU Code Status: Full Critical Care Time: 35min Rangel West DO
[2016-07-22] MEDS ORDERED: Acetaminophen ADULT LIQ* 650 MG/20.3 ML UDC ONE (23:16)
[2016-07-23] MEDS: Chlorhexidine MOUTHWASH 0.12%* 15 ML UDC TOPICAL SCH ×6 (03:52→23:01)
[2016-07-23] MEDS: ceFAZolin 1 GM in Dextrose (*) 1 GM/50 ML BAG IVPB SCH ×4 (03:52→21:27)
[2016-07-23 04:31] LABS: Hematocrit 25 % (42-52); Hemoglobin 8.2 g/dl (14.0-18.0); Mean Corpuscular HGB Conc 33 g/dl (31-36); Mean Corpuscular Hemoglobin 31 pg (27-31); Mean Corpuscular Volume 93 fL (80-94); Mean Platelet Volume 8 um3 (7.4-10.4); Red Blood Count 2.63 10^6/ul (4.0-5.4); Red Cell Distribution Width 17 % (10.5-15); White Blood Count 7.5 10^3/ul (3.5-10.8)
[2016-07-23 04:49] LABS: Albumin 2.2 g/dL (3.2-5.2); BUN/Creatinine Ratio 21.2 (8-20); Calcium 7.6 mg/dL (8.6-10.3); EGFR Non-African American 128.3 (>60); Globulin 5.2 g/dL (2-4); Magnesium 2.3 mg/dL (1.9-2.7); Phosphorus 2.4 mg/dL (2.5-5.0); Potassium 3.3 mmol/L (3.5-5.0); Total Bilirubin 1.9 mg/dL (0.2-1.0); Total Protein 7.4 g/dL (6.4-8.9)
[2016-07-23] MEDS: Heparin VIAL(*) 5000 UNITS/ML VIAL (FIVE THOUSAND) SUBCUT SCH ×3 (05:31→23:01)
[2016-07-23] MEDS: Propofol* 100 ML IV SCH ×3 (05:31→20:11)
[2016-07-23] MEDS ORDERED: Acetaminophen ADULT LIQ* 650 MG/20.3 ML UDC G TUBE PRN (06:01)
--- NOTE | 2016-07-23 10:23 | PN ---
Critical Care Services: Patient continues on ventilator, and sedated with propofol and fentanyl. On ancef for MSSA bacteremia. Ascitic fluid shows no growth after 48 hrs. Vital Signs: Temp Pulse Resp BP SpO2 FiO2 97.2 F 82 21 108/67 96 40 Physical Exam: Gen:Unresponsive. Appears comfortable. Lungs:Scattered rhonchi. No crackles or wheezes. Abdomen:distended. Extremities:1-2+ edema Neuro: No asterixis Fluid Balance (Past 24 Hours): 07/23/16 06:59 Intake Total 3318 Output Total 1500 Balance +1818 Weight 199 lb 11 oz Intake: IV Fluids 322 4 gm Mg+ ABX - CEFAZOLIN 100 NS (0.9%) 222 IVPB 170 ABX - CEFAZOLIN NS (0.9%) 170 Medicated IV 238 CC - Propofol/Diprivan 238 Oral Tube Feeding 1763 Tube Feeding Flush Amount 250 NG Tube Irrigate Amount 575 Output: Urine Blue 1500 Labs: Laboratory Results - last 24 hr 07/23/16 04:20 WBC 7.5 Hgb 8.2 Hct 25 Plt Count 119 INR 1.52 Sodium 133 Potassium 3.3 Chloride 103 Carbon Dioxide 26 BUN 14 Creatinine 0.66 Glucose 127 Calcium 7.6 Phosphorus 2.4 Magnesium 2.3 Total Bilirubin 1.90 AST 82 H ALT 17 Alkaline Phosphatase 140 Ammonia 103 Total Protein 7.4 Albumin 2.2 Studies: None today. Nutrition: Tube feedings Impression: Major problems are: 1. Alcoholic cirrhosis with apparent hepatic encephalopathy. Rx lactulose. Ammonia level lower today. 2. Apparent alcohol withdrawal. No signs of such today. 3. Staph aureus bacteremia (MSSA). Rx ancef. No fever or leukocytosis. Plan: Taper sedation when possible and move towards extubation. present at bedside and informed of current condition. Critical Care Time: 40 minutes
[2016-07-23] MEDS: Thiamine TAB* 100 MG TAB G TUBE SCH ×3 (11:00→20:04)
[2016-07-23] MEDS: Multivitamins ADULT w/MIN LIQ* 15 ML UDC PO SCH (11:00)
[2016-07-23] MEDS: Spironolactone TAB* 25 MG G TUBE SCH (11:00)
[2016-07-23] MEDS: Folic Acid TAB* 1 MG PO SCH (11:00)
[2016-07-23] MEDS: LACTULOSE* 30 ML UDC NG TUBE SCH ×2 (11:00→20:03)
[2016-07-23] MEDS: LANSOPRAZOLE G TUBE SCH (13:26)
[2016-07-23] MEDS: Morphine INJ* 2 MG/ML 1 ML SYRINGE IV PRN ×2 (15:26→21:27)
[2016-07-23] MEDS: fentaNYL* 50 MCG/ML 2 ML VIAL (100 MCG VIAL) IV SLOW PU PRN (18:28)
[2016-07-24] MEDS: Propofol* 100 ML IV SCH ×4 (03:17→23:40)
[2016-07-24] MEDS: Chlorhexidine MOUTHWASH 0.12%* 15 ML UDC TOPICAL SCH ×6 (03:17→22:15)
[2016-07-24] MEDS: ceFAZolin 1 GM in Dextrose (*) 1 GM/50 ML BAG IVPB SCH ×4 (03:17→21:54)
[2016-07-24] MEDS: LORazepam INJ* 2 MG/ML 1 ML VIAL IV PUSH PRN (04:21)
[2016-07-24 05:27] LABS: BUN/Creatinine Ratio 26.2 (8-20); Calcium 7.8 mg/dL (8.6-10.3); EGFR African American 167.9 (>60); EGFR Non-African American 130.6 (>60); Potassium 3.7 mmol/L (3.5-5.0)
[2016-07-24] MEDS: Heparin VIAL(*) 5000 UNITS/ML VIAL (FIVE THOUSAND) SUBCUT SCH ×3 (05:32→21:53)
[2016-07-24] MEDS: Multivitamins ADULT w/MIN LIQ* 15 ML UDC PO SCH (08:07)
[2016-07-24] MEDS: Thiamine TAB* 100 MG TAB G TUBE SCH ×3 (08:07→20:46)
[2016-07-24] MEDS: Folic Acid TAB* 1 MG PO SCH (08:07)
[2016-07-24] MEDS: Spironolactone TAB* 25 MG G TUBE SCH (08:07)
[2016-07-24] MEDS: LACTULOSE* 30 ML UDC NG TUBE SCH ×5 (08:08→20:46)
--- NOTE | 2016-07-24 08:14 | RAD ---
INDICATION: Pneumonia COMPARISON: July 21, 2016 TECHNIQUE: An AP portable view obtained at 0615 hours is submitted. FINDINGS: Bones/Soft Tissues: There are no acute bony findings. There is an endotracheal tube 4.9 cm above the tanja. Nasogastric tube passes normally through the mediastinum Cardiomediastinal: The cardiomediastinal silhouette is normal. Lungs: There is a small left basilar infiltrate or atelectasis. There are no significant effusions. Pleura: There are no pleural effusions. Other: None IMPRESSION: SMALL LEFT BASILAR INFILTRATE OR ATELECTASIS.
[2016-07-24] MEDS: LANSOPRAZOLE G TUBE SCH (09:00)
--- NOTE | 2016-07-24 13:09 | PN ---
Critical Care Services: 2 problems today: 1) Ammonia level up, and 2) fever (no apparent source, but patient is being treated for MSSA bacteremia. Vital Signs: Temp Pulse Resp BP SpO2 FiO2 101 F 98 31 121/75 95 50 Physical Exam: Gen:Unresponsive on ventilator Lungs:Coarse rhonchi. Cardiac: No Murmurs Extremities:No cyanosis. 1+edema. Neuro:No asterixis Fluid Balance (Past 24 Hours): 07/24/16 06:59 Intake Total 2246 Output Total 650 Balance +1596 Weight 198 lb 10oz Intake: IV Fluids 373 4 gm Mg+ 165 ABX - CEFAZOLIN 129 NS (0.9%) 79 IVPB 50 ABX - CEFAZOLIN 50 NS (0.9%) Medicated IV 285 CC - Propofol/Diprivan 285 Tube Feeding 1173 Tube Feeding Flush Amount 320 NG Tube Irrigate Amount 45 Output: Blue 650 Labs: 07/24/16 07/24/16 05:01 05:01 Sodium 132 Potassium 3.7 Chloride 103 Carbon Dioxide 25 Anion Gap 4 BUN 17 Creatinine 0.65 Glucose 125 Calcium 7.8 Ammonia 126 Studies: None today. Nutrition: Tube feedings Impression: 1. Hepatic encephalopathy continues. New-onset fever: possibilities include usual nosocomial infections, plus endocarditis (staph-related). Plan: 1. Culture sputum, blood (x2), urine. 2) CXR 3) Broaden antibiotic coverage 4) Increase lactulose dosing to q 4h 5) Ask ID about JUSTIN for endocarditis Critical Care Time: 45 minutes
--- NOTE | 2016-07-24 13:38 | RAD ---
Indication: Post RIGHT arm PICC placement. Comparison: July 24, 2016 0514 hours Technique: Upright AP 1305 hours Report: Endotracheal tube tip 5.5 cm above the Adelina. Nasogastric tube tip at level of gastric antrum directed distal. Tip of RIGHT upper extremity PICC at LEFT margin of the mediastinum at the level of the AP window. Low lung volumes with bilateral mild linear opacities most likely representing subsegmental atelectasis. Trace pleural effusions are not excluded. Unremarkable central pulmonary vasculature. Negative for pneumothorax. 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 There is no prior CT for correlation.
[2016-07-24] MEDS ORDERED: Piperac/Tazob 3.375 gm in NS* 3.375 GM/100 ML BAG IVPB SCH ×3 (14:00→22:00)
--- NOTE | 2016-07-24 14:20 | RAD ---
Indication: Evaluate for PICC adjustment. Single frontal view of the chest performed at 1552 hours was reviewed. Comparison is made with previous exam dated earlier the same day. ET tube is at the level of the aortic arch. Heart is of normal size and configuration. Right-sided PICC line is in place. IMPRESSION: ET tube in appropriate position. The left PICC line has been partially withdrawn.
[2016-07-24 14:59] LABS: Albumin 2.1 g/dL (3.2-5.2); Direct Bilirubin 0.9 mg/dL (0.03-0.18); Globulin 5.4 g/dL (2-4); Indirect Bilirubin 0.9 mg/dL (0.3-1.0); Total Bilirubin 1.8 mg/dL (0.2-1.0); Total Protein 7.5 g/dL (6.4-8.9)
[2016-07-25] MEDS: LACTULOSE* 30 ML UDC NG TUBE SCH ×5 (00:40→20:59)
[2016-07-25] MEDS: Piperac/Tazob 3.375 gm in NS* 3.375 GM/100 ML BAG IVPB SCH ×3 (02:14→19:40)
[2016-07-25] MEDS: Propofol* 100 ML IV SCH ×3 (04:10→20:56)
[2016-07-25] MEDS: Morphine INJ* 2 MG/ML 1 ML SYRINGE IV PRN (04:24)
[2016-07-25] MEDS: Chlorhexidine MOUTHWASH 0.12%* 15 ML UDC TOPICAL SCH ×5 (04:50→20:13)
[2016-07-25] MEDS: ceFAZolin 1 GM in Dextrose (*) 1 GM/50 ML BAG IVPB SCH ×4 (04:50→21:00)
[2016-07-25 05:40] LABS: BUN/Creatinine Ratio 19.1 (8-20); EGFR African American 159.4 (>60); EGFR Non-African American 123.9 (>60)
[2016-07-25] MEDS: Heparin VIAL(*) 5000 UNITS/ML VIAL (FIVE THOUSAND) SUBCUT SCH ×3 (05:55→21:00)
[2016-07-25] MEDS: LANSOPRAZOLE G TUBE SCH (08:29)
[2016-07-25] MEDS: Thiamine TAB* 100 MG TAB G TUBE SCH ×3 (08:30→20:58)
[2016-07-25] MEDS: Multivitamins ADULT w/MIN LIQ* 15 ML UDC PO SCH (08:30)
[2016-07-25] MEDS: Spironolactone TAB* 25 MG G TUBE SCH (08:30)
[2016-07-25] MEDS: Folic Acid TAB* 1 MG PO SCH (08:30)
--- NOTE | 2016-07-25 17:54 | PN ---
Critical Care Services: Attempts to wean today were unsuccessful. Is till agitated, and has high O2 requirement. CXR yesterday was clear, but has increasing respiratory secretions. Ammonia levels down since increasing lactulose dose. Vital Signs: Temp Pulse Resp BP SpO2 FiO2 100.3 F 81 26 101/58 94 60 Physical Exam: Gen:Unresponsive Lungs:Coarse rhonchi ABD: distended Extremities:No cyanosis. 1-2+ edema Fluid Balance (Past 24 Hours): 07/25/16 06:59 Intake Total 1060 Output Total 775 Balance +285 Weight 197 lb 15oz Intake: IV Fluids 500 4 gm Mg+ ABX - CEFAZOLIN 125 ABX - ZOSYN 124 NS (0.9%) 251 IVPB ABX - CEFAZOLIN NS (0.9%) Medicated IV 380 CC - Propofol/Diprivan 380 Tube Feeding Tube Feeding Flush Amount 60 NG Tube Irrigate Amount 120 Output: Urine 325 Blue 450 Tube Feeding Residual 0 Amount Wasted Other: Date of Last Bowel 07/25/16 Movement # Bowel Movements 2 Estimated Stool Amount Large Labs: 07/25/16 07/25/16 04:30 04:30 Sodium 134 Potassium 4.0 Chloride 104 Carbon Dioxide 26 BUN 13 Creatinine 0.68 Glucose 104 H Calcium 8.0 L Ammonia 71 Studies: Tracheal aspirate growing staph aureus. Nutrition: Tube feedings Impression: Hepatic encephalopathy should be improving (with ammonia down from 126 to 71), but may be developing a pneumonia (fever, increasing respiratory secretions) Plan: Continue cefazolin and zosyn. Check CXR, and attempt to wean daily. Critical Care Time: 45 minutes
[2016-07-26] MEDS: Chlorhexidine MOUTHWASH 0.12%* 15 ML UDC TOPICAL SCH ×3 (00:04→07:53)
[2016-07-26] MEDS: Piperac/Tazob 3.375 gm in NS* 3.375 GM/100 ML BAG IVPB SCH ×3 (01:59→18:07)
[2016-07-26] MEDS: Propofol* 100 ML IV SCH (01:59)
[2016-07-26] MEDS: ceFAZolin 1 GM in Dextrose (*) 1 GM/50 ML BAG IVPB SCH ×4 (04:20→21:15)
[2016-07-26 05:15] LABS: Albumin 2.2 g/dL (3.2-5.2); BUN/Creatinine Ratio 16.4 (8-20); EGFR African American 146.9 (>60); EGFR Non-African American 114.2 (>60); Globulin 5.3 g/dL (2-4); Indirect Bilirubin 0.8 mg/dL (0.3-1.0); Total Bilirubin 1.8 mg/dL (0.2-1.0); Total Protein 7.5 g/dL (6.4-8.9)
[2016-07-26] MEDS: Heparin VIAL(*) 5000 UNITS/ML VIAL (FIVE THOUSAND) SUBCUT SCH ×3 (06:09→21:15)
--- NOTE | 2016-07-26 07:34 | RAD ---
Indication: Increased respiratory rate. Labored breathing. Comparison: July 24, 2016 Technique: Upright AP 0456 hours Report: Endotracheal tube tip 4.8 cm above the Adelina. Nasogastric tube passes to the stomach visualized as far distal as the antrum. RIGHT upper extremity PICC tip at level of RIGHT subclavian vein directed central. Low lung volumes with bilateral subsegmental atelectasis most prominent at the lung bases. Grossly clear pleural spaces. Negative for pneumothorax. Upper normal heart size. Unremarkable central pulmonary vasculature. IMPRESSION: Low lung volumes with subsegmental atelectasis.
--- NOTE | 2016-07-26 07:43 | RAD ---
INDICATION: Question pneumonia COMPARISON: July 25, 2016 TECHNIQUE: An AP portable view obtained at 0600 hours is submitted. FINDINGS: Bones/Soft Tissues: There are no acute bony findings. The endotracheal tube remains in satisfactory position. A nasogastric tube passes normally through the mediastinum. There is a right-sided PICC catheter terminating over the needle right clavicle Cardiomediastinal: The cardiomediastinal silhouette is normal. Lungs: There are no infiltrates. There is right basilar atelectasis and there is mild left-sided airspace disease which is indeterminate but could be related to a developing pneumonitis. Pleura: There are no pleural effusions. Other: None IMPRESSION: TUBES AND CATHETERS IN SATISFACTORY POSITION, UNCHANGED. POSSIBLE DEVELOPING LEFT BASILAR INFILTRATE. RIGHT BASILAR ATELECTASIS.
[2016-07-26] MEDS: Multivitamins ADULT w/MIN LIQ* 15 ML UDC PO SCH (07:53)
[2016-07-26] MEDS: Folic Acid TAB* 1 MG PO SCH (07:53)
[2016-07-26] MEDS: LACTULOSE* 30 ML UDC NG TUBE SCH ×2 (07:53→21:15)
[2016-07-26] MEDS: LANSOPRAZOLE G TUBE SCH (07:54)
[2016-07-26] MEDS: Thiamine TAB* 100 MG TAB G TUBE SCH ×3 (07:54→21:15)
[2016-07-26] MEDS: Spironolactone TAB* 25 MG G TUBE SCH (07:54)
[2016-07-26] MEDS ORDERED: Phytonadione INJ (Adult)* 10 MG in NS 0.9% 50 ML* 50 ML IV ONE (08:30)
[2016-07-26 09:03] LABS: Hematocrit 25 % (42-52); Hemoglobin 8.3 g/dl (14.0-18.0); Mean Corpuscular HGB Conc 34 g/dl (31-36); Mean Corpuscular Hemoglobin 32 pg (27-31); Mean Corpuscular Volume 95 fL (80-94); Mean Platelet Volume 9 um3 (7.4-10.4); Red Blood Count 2.61 10^6/ul (4.0-5.4); Red Cell Distribution Width 17 % (10.5-15); White Blood Count 8.8 10^3/ul (3.5-10.8)
--- NOTE | 2016-07-26 17:11 | PN ---
Critical Care Services: Weaned and extubated earlier today and has been doing well. Vital Signs: Temp Pulse Resp BP SpO2 FiO2 98.6 F 77 23 126/73 95 30 Physical Exam: Gen:Somnolent but arousable HEENT:Bleeding from gums. Lungs: Scattered rhonchi. Abdomen: Distended (but not more than yesterday) Extremities: No cyanosis. 1+edema Neuro: No asterixis. Fluid Balance (Past 24 Hours): 07/26/16 06:59 Intake Total 1145 Output Total 1225 Balance -80 Weight 197 lb 12oz Intake: IV Fluids 482 4 gm Mg+ ABX - CEFAZOLIN 150 ABX - ZOSYN 230 NS (0.9%) 102 IVPB 100 ABX - CEFAZOLIN ABX - ZOSYN 100 Medicated IV 393 CC - Propofol/Diprivan 393 Oral Tube Feeding 0 Tube Feeding Flush Amount 120 NG Tube Irrigate Amount 50 Output: Urine Blue 1225 Tube Feeding Residual 0 Amount Wasted Other: Date of Last Bowel Movement # Bowel Movements 1 Estimated Stool Amount Medium Labs: Laboratory Results - last 24 hr 07/26/16 07/26/16 07/26/16 04:46 04:46 08:42 WBC 8.8 Hgb 8.3 Hct 25 Plt Count 159 Sodium 133 Potassium 4.0 Chloride 103 Carbon Dioxide 25 BUN 12 Creatinine 0.73 Glucose 107 Total Bilirubin 1.80 AST 61 ALT 14 Alkaline Phosphatase 120 Ammonia 81 H Total Protein 7.5 Albumin 2.2 Studies: Chest x-ray - no infiltrates Nutrition: Oral unrestricted diet started today. Impression: Resolution of hepatic encephalopathy and ETOH withdrawal. Plan: General supportive care.
[2016-07-26] MEDS: guaiFENesin ER TAB 600 MG PO SCH (23:42)
[2016-07-27] MEDS: Piperac/Tazob 3.375 gm in NS* 3.375 GM/100 ML BAG IVPB SCH (01:34)
[2016-07-27] MEDS: LORazepam INJ* 2 MG/ML 1 ML VIAL IV PUSH PRN (03:14)
[2016-07-27] MEDS: ceFAZolin 1 GM in Dextrose (*) 1 GM/50 ML BAG IVPB SCH ×2 (05:04→09:40)
[2016-07-27] MEDS: Heparin VIAL(*) 5000 UNITS/ML VIAL (FIVE THOUSAND) SUBCUT SCH ×3 (06:02→21:21)
[2016-07-27 06:44] LABS: BUN/Creatinine Ratio 15.9 (8-20); Calcium 8.1 mg/dL (8.6-10.3); EGFR African American 174.1 (>60); EGFR Non-African American 135.4 (>60); Potassium 3.7 mmol/L (3.5-5.0)
[2016-07-27] MEDS: Chlorhexidine MOUTHWASH 0.12%* 15 ML UDC TOPICAL SCH ×2 (07:47→07:48)
[2016-07-27] MEDS: Spironolactone TAB* 25 MG G TUBE SCH (08:07)
[2016-07-27] MEDS: Thiamine TAB* 100 MG TAB G TUBE SCH (08:07)
[2016-07-27] MEDS: guaiFENesin ER TAB 600 MG PO SCH (08:07)
[2016-07-27] MEDS: LACTULOSE* 30 ML UDC NG TUBE SCH (08:07)
[2016-07-27] MEDS: Multivitamins ADULT w/MIN LIQ* 15 ML UDC PO SCH (08:07)
[2016-07-27] MEDS: Folic Acid TAB* 1 MG PO SCH (08:07)
[2016-07-27] MEDS: LANSOPRAZOLE G TUBE SCH (08:09)
[2016-07-27] MEDS ORDERED: Spironolactone TAB* 25 MG PO SCH (09:12)
[2016-07-27] MEDS ORDERED: LACTULOSE* 30 ML UDC PO SCH (09:14)
--- NOTE | 2016-07-27 09:23 | PN ---
Critical Care Services: Weaned and extubated yesterday and has done well since. Is alert, and responds appropriately to verbal commands. Vital Signs: Temp Pulse Resp BP SpO2 FiO2 98.1 F 89 19 118/78 97 30 Physical Exam: Gen:Alert, oriented Lungs: Scaterred rhonchi. No crackles or wheezes. Abdomen: Distended, but no change since yesterday. Extremities: No cyanosis. 1+edema. Neuro:No asterixis. Fluid Balance (Past 24 Hours): 07/27/16 06:59 Intake Total 2268 Output Total 3400 Balance -1132 Weight 198 lb 10oz Intake: IV Fluids 490 ABX - CEFAZOLIN 273 ABX - ZOSYN 131 NS (0.9%) 86 IVPB 237 ABX - ZOSYN 237 Medicated IV 71 CC - Propofol/Diprivan 71 Oral 1470 Tube Feeding Tube Feeding Flush Amount NG Tube Irrigate Amount Output: Urine Blue 3200 Liquid Stool 200 Other: Date of Last Bowel 07/27/2016 Movement # Bowel Movements 1 Estimated Stool Amount Large Labs: 07/27/16 07/27/16 06:05 06:05 Sodium 133 Potassium 3.7 Chloride 107 Carbon Dioxide 23 BUN 10 Creatinine 0.63 Glucose 105 Magnesium 2.0 Ammonia 72 Studies: None today. Nutrition: Unrestricted diet. Impression: No signs of hepatic encephalopathy or ETOH withdrawal. Plan: Give 7-10 days of ancef for MSSA bacteremia (and staph in sputum). Continue lactulose (30 mL BID) and spironolactone. Monitor INR after vitamin K.
[2016-07-27] MEDS ORDERED: LORazepam TAB(*) 1 MG PO PRN (12:00)
[2016-07-27] MEDS: ceFAZolin 2 GM PREMIX(*) 2 GM/50 ML BAG IVPB SCH ×2 (13:46→21:20)
--- NOTE | 2016-07-27 14:47 | CONS ---
CONSULTATION REPORT: DATE OF CONSULT: 07/27/16 REQUESTING PHYSICIAN: Dr. Aburto. CONSULTING SERVICE: Infectious Disease. REASON FOR CONSULTATION: Staphylococcal bacteremia and sepsis. IMPRESSION: 1. Staphylococcal bacteremia, septicemia, sepsis present on admission. 2. Staphylococcal bacteremia, cleared with antibiotics. He had evaluation of ascites that did not show evidence of spontaneous bacterial peritonitis and the culture of the peritoneal fluid was negative. He has no spine tenderness. He has no joint tenderness or symptoms. He has no prosthetic material present. Another consideration is infective endocarditis which without a murmur, any peripheral stigmata of endocarditis and only 2/4 bottles positive for Staphylococcal bacteremia of a low pretest probability for infective endocarditis. 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 3. New diagnosis of cirrhosis, decompensated. History of heavy alcohol abuse. 4. Hepatic encephalopathy present on admission. RECOMMENDATIONS: 1. Agree with Ancef, we will change it to 2 g IV every 8 hours. We plan on 14 days of IV antibiotics starting from the via his right upper extremity PICC line. 2. Hepatitis C antibody. Consider evaluation for autoimmune hepatitis. 3. Transthoracic echocardiogram. HISTORY OF PRESENT ILLNESS: This is a 51-year-old male admitted with abdominal distention. He cannot provide much of the history given his mental status which was obtained aside from discussion with Dr. Aburto, review of the medical records and discussion with the patient's . She notes for about 3 weeks before admission, he had progression of abdominal distention which he thought was due to constipation, became quite uncomfortable. He developed swelling of both legs. He also had bleeding of his gums. He came to the ER as a result. She says, he did have some fevers over the few days before he came in without any chills or sweats. His appetite was decreased overall. He had not been complaining of any back or joint pain. On admission, his white count was 6000 on the , he was febrile to 101. He was started on cefazolin on July 20. He has been tolerating that well. He was eventually intubated in the setting of alcohol withdrawal and obtundation with uneventful ventilator therapy. He has not had a fever since the . The sputum culture was sent on the , grew Staph aureus and Haemophilus parainfluenzae. None of his chest x-rays have shown infiltrate. According to his , he has had no cough, dyspnea or chest pain. Supplemental oxygen is decreasing down to 4L from 10 yesterday. He denies any joint or spine pain. According to his , there is no prosthetic material present. He has not been like this in the past. He drinks heavily more than 6-8 glasses of wine a day, which has been longstanding. He has not had medical care in the last few years. PAST MEDICAL HISTORY: Cirrhosis. MEDICATIONS: 1. Ancef 1 g IV every 6 hours. 2. Heparin subcu injections 3. Folic acid. 4. Lactulose. 5. Spironolactone. ALLERGIES: No known drug allergies. FAMILY HISTORY: There are no recurrent infections or tuberculosis. SOCIAL HISTORY: He lives in [place] with his and children. He has no travel or sick contacts. No history of injection drug use. REVIEW OF SYSTEMS: A full review of systems was negative except as noted above. PHYSICAL EXAM: Vital Signs: Temperature 98.7, heart rate is 90, respiratory rate 19, blood pressure 119/80, O2 saturation is 97% on 4L. In general, he is asleep and awakens to voice, not in distress. Neurologic: He is oriented x2. Answers some questions. Follows commands appropriately. There is no lower extremity clonus bilaterally. There is sensation intact to light touch in lower extremities. He can bend his hips, knees and wiggle the toes. HEENT: There is no conjunctival hemorrhage. Oropharynx is without lesions. Neck is supple without nuchal rigidity. Lymph nodes: There is no cervical, supraclavicular, inguinal, axillary or epitrochlear lymphadenopathy. Heart has regular rate and rhythm without murmurs, rubs or gallops. Lungs are clear to auscultation bilaterally. Abdomen is soft. Bowel sounds present. He is diffusely distended and nontender. No bulging flanks. Musculoskeletal: There is no spine tenderness to palpation. No joint synovitis. There is negative logroll bilaterally. Skin: There are no rashes or splinter hemorrhages. LABORATORY DATA: White blood cell count 8.8, hemoglobin 8.3, platelets 159. Creatinine is 0.6. INR is 1.5. Urinalysis from the was negative. Ascites fluid from the was 360 cells, 87% monocytes. The culture of peritoneal fluid was negative. Urine culture was negative on the 24th. Blood cultures on the 24th was negative. Please see impressions and recommendations outlined above, which I have discussed with Dr. Aburto. Thank you for asking me to see Mr. Cross in consultation. [id number]/[facility] #: [id number] MTDD
[2016-07-28] MEDS: ceFAZolin 2 GM PREMIX(*) 2 GM/50 ML BAG IVPB SCH ×3 (05:00→20:08)
[2016-07-28] MEDS: Heparin VIAL(*) 5000 UNITS/ML VIAL (FIVE THOUSAND) SUBCUT SCH ×3 (06:44→20:08)
--- NOTE | 2016-07-28 08:10 | PN ---
Subjective Date of Service: 07/28/16 Interval History: No c/o. When asked, stated he had more than 3 BM's yesterday and at least 3 today. Objective Active Medications: Folic Acid (Folvite Tab*) 1 mg PO DAILY [facility] Last Admin: 07/27/16 08:07 Dose: 1 mg Heparin Sodium (Porcine) (Heparin Vial(*)) 5,000 units SUBCUT Q8HR [facility] Last Admin: 07/28/16 06:44 Dose: 5,000 units Heparin Sodium (Porcine) (Heparin Flush Picc/Ml/Cvc(*)) 1 ml FLUSH 0600,1800 [facility] PRN Reason: Protocol Last Admin: 07/28/16 06:39 Dose: 2 ml Cefazolin Sodium/Dextrose (Kefzol Premix(*)) 2 gm in 50 mls @ 100 mls/hr IVPB Q8H [facility] Last Admin: 07/28/16 05:00 Dose: 100 mls/hr Lactulose (Lactulose*) 15 ml PO BID [facility] Lorazepam (Ativan Tab(*)) 1 mg PO Q4H PRN PRN Reason: ANXIETY Multivitamins (Theragran W/Minerals Liq*) 15 ml PO DAILY [facility] Last Admin: 07/27/16 08:07 Dose: 15 ml Ondansetron HCl (Zofran Inj*) 4 mg IV Q6H PRN PRN Reason: NAUSEA Rifaximin (Xifaxan*) 550 mg PO BID [facility] Spironolactone (Aldactone Tab*) 25 mg PO DAILY [facility] Vital Signs 07/27/16 07/27/16 07/27/16 09:00 09:06 10:00 Temperature Pulse Rate 89 99 Respiratory 20 19 19 Rate Blood Pressure 118/78 118/76 (mmHg) O2 Sat by Pulse 97 96 Oximetry 07/27/16 07/27/16 07/27/16 10:13 11:00 11:32 Temperature 98.7 F Pulse Rate 92 101 Respiratory 20 23 22 Rate Blood Pressure 107/71 (mmHg) O2 Sat by Pulse 95 99 Oximetry 07/27/16 07/27/16 07/27/16 12:02 18:39 18:45 Temperature 98.1 F 100.1 F 100.1 F Pulse Rate 101 86 86 Respiratory 22 20 20 Rate Blood Pressure 107/71 121/78 121/78 (mmHg) O2 Sat by Pulse 99 96 Oximetry 07/27/16 07/27/16 07/28/16 20:00 20:15 07:11 Temperature 97.5 F 98.7 F Pulse Rate 81 91 Respiratory 20 16 20 Rate Blood Pressure 114/63 131/89 (mmHg) O2 Sat by Pulse 99 95 Oximetry Oxygen Devices in Use Now: None Appearance: Alert, supine in bed. Neutral affect. Looks comfortable. Eyes: No Scleral Icterus Ears/Nose/Mouth/Throat: Clear Oropharnyx, Mucous Membranes Moist Neck: NL Appearance and Movements; NL JVP, No Thyroid Enlargement, Masses Respiratory: Symmetrical Chest Expansion and Respiratory Effort, Clear to Auscultation, Clear to Percussion Cardiovascular: NL Sounds; No Murmurs; No JVD, RRR, No Edema, - Abdominal: - - Mild distention. Non tender. Nl BS. Extremities: No Edema, No Clubbing, Cyanosis, - Skin: No Rash or Ulcers, No Nodules or Sclerosis, - Neurological: NL Sensation, - - Knows day of week, states he was in the ICU 5 days. No asterixis. Slow to respond. Result Diagrams: 07/26/16 08:42 07/27/16 06:05 Microbiology and Other Data: Microbiology 07/20/16 14:00 Gram Stain - Final Body Fluid - Peritoneal 07/20/16 06:15 Stool Occult Blood ([place]) - Final Stool Assess/Plan/Problems-Billing Assessment: 51 yo M h/o etoh abuse p/w abdominal bloating found new onset cirrhosis, ascites , 1/4 bcx MSSA, transferred to ICU with DTs and intubated for airway protection 07/21 - Patient Problems (1) Bacteremia Current Visit: Yes Status: Acute Code(s): R78.81 - BACTEREMIA SNOMED Code( s): 9027744 Comment: 3 out of 4 bottles Last day of cafazolin 08/02/16. (2) Cirrhosis Current Visit: Yes Status: Acute Comment: In setting of EtOH abuse Paracentesis 07/20, no SBP Continue spironolactone Reduce lactulose, unlikely to comply with present dose, add rifaximin. Not clear if mental slowness related to withdrawal, ammonia level, or Wernicke' s. (3) Alcohol withdrawal Current Visit: Yes Status: Acute Code(s): F10.239 - ALCOHOL DEPENDENCE WITH WITHDRAWAL, UNSPECIFIED SNOMED Code(s): 865212784 Comment: Extubated 07/26/26. SW to p on alcoholism tx.
--- NOTE | 2016-07-28 08:16 | PN ---
Progress Note - Progress Note Note: Time spent on patient care 45 minutes.
[2016-07-28 09:46] LABS: TSH (Thyroid Stimulating Horm) 8.63 mcIU/mL (0.34-5.60)
[2016-07-28] MEDS: Lactulose* 15 ML UDC PO SCH ×2 (10:29→20:08)
[2016-07-28] MEDS: Folic Acid TAB* 1 MG PO SCH (10:30)
[2016-07-28] MEDS: RiFAXimin* 550 MG TAB PO SCH ×2 (10:30→20:08)
[2016-07-28] MEDS: Multivitamins ADULT w/MIN LIQ* 15 ML UDC PO SCH (13:12)
[2016-07-29] MEDS: ceFAZolin 2 GM PREMIX(*) 2 GM/50 ML BAG IVPB SCH ×3 (04:52→20:05)
[2016-07-29] MEDS: Heparin VIAL(*) 5000 UNITS/ML VIAL (FIVE THOUSAND) SUBCUT SCH ×3 (05:45→20:05)
[2016-07-29] MEDS: RiFAXimin* 550 MG TAB PO SCH ×2 (07:54→20:05)
[2016-07-29] MEDS: Folic Acid TAB* 1 MG PO SCH (07:55)
[2016-07-29] MEDS: Lactulose* 15 ML UDC PO SCH ×2 (07:55→20:05)
[2016-07-29] MEDS: Multivitamins ADULT w/MIN LIQ* 15 ML UDC PO SCH (07:55)
[2016-07-29] MEDS ORDERED: Levothyroxine TAB* 25 MCG TAB PO ONE (13:03)
--- NOTE | 2016-07-29 13:19 | PN ---
Subjective Date of Service: 07/29/16 Interval History: Frequency of stools has diminished, had 2-3 so far today. Walked around the block with walker, CG. Objective Active Medications: Folic Acid (Folvite Tab*) 1 mg PO DAILY [facility] Last Admin: 07/29/16 07:55 Dose: 1 mg Heparin Sodium (Porcine) (Heparin Vial(*)) 5,000 units SUBCUT Q8HR [facility] Last Admin: 07/29/16 05:45 Dose: 5,000 units Heparin Sodium (Porcine) (Heparin Flush Picc/Ml/Cvc(*)) 1 ml FLUSH 0600,1800 [facility] PRN Reason: Protocol Last Admin: 07/29/16 05:46 Dose: 2 ml Cefazolin Sodium/Dextrose (Kefzol Premix(*)) 2 gm in 50 mls @ 100 mls/hr IVPB Q8H [facility] Last Admin: 07/29/16 04:52 Dose: 100 mls/hr Lactulose (Lactulose*) 15 ml PO BID [facility] Last Admin: 07/29/16 07:55 Dose: 15 ml Levothyroxine Sodium (Synthroid Tab*) 25 mcg PO DAILY@0600 [facility] Levothyroxine Sodium (Synthroid Tab*) 25 mcg PO ONCE ONE Stop: 07/29/16 13:04 Multivitamins (Theragran W/Minerals Liq*) 15 ml PO DAILY [facility] Last Admin: 07/29/16 07:55 Dose: 15 ml Rifaximin (Xifaxan*) 550 mg PO BID [facility] Last Admin: 07/29/16 07:54 Dose: 550 mg Vital Signs 07/28/16 07/28/16 07/28/16 15:18 20:00 23:14 Temperature 98.8 F 99.3 F Pulse Rate 92 89 Respiratory 18 18 18 Rate Blood Pressure 136/78 125/77 (mmHg) O2 Sat by Pulse 98 94 Oximetry 07/29/16 07/29/16 07/29/16 04:26 07:27 08:00 Temperature 100.0 F Pulse Rate 89 86 Respiratory 16 16 Rate Blood Pressure 123/77 129/78 (mmHg) O2 Sat by Pulse 94 99 Oximetry 07/29/16 07/29/16 08:17 11:30 Temperature 98.1 F 98.3 F Pulse Rate 92 Respiratory 16 Rate Blood Pressure 119/80 (mmHg) O2 Sat by Pulse 99 Oximetry Oxygen Devices in Use Now: None Appearance: Alert, partly up in bed using his computer. In good spirits. Looks comfortable. Eyes: No Scleral Icterus Respiratory: Symmetrical Chest Expansion and Respiratory Effort, Clear to Auscultation, Clear to Percussion Cardiovascular: NL Sounds; No Murmurs; No JVD, RRR, No Edema, - Abdominal: - - distended, soft, nontender. nl BS. Neurological: Alert and Oriented x 3, NL Sensation, - - No asterixis. Result Diagrams: 07/26/16 08:42 07/27/16 06:05 Microbiology and Other Data: Microbiology 07/20/16 14:00 Gram Stain - Final Body Fluid - Peritoneal 07/20/16 06:15 Stool Occult Blood ([place]) - Final Stool Assess/Plan/Problems-Billing Assessment: 51 yo M h/o etoh abuse p/w abdominal bloating found new onset cirrhosis, ascites , / bcx MSSA, transferred to ICU with DTs and intubated for airway protection 07/21 - Patient Problems (1) Bacteremia Current Visit: Yes Status: Acute Code(s): R78.81 - BACTEREMIA SNOMED Code( s): 4072319 Comment: 3 out of 4 bottles Last day of cefazolin 08/02/16. (2) Cirrhosis Current Visit: Yes Status: Acute Comment: In setting of EtOH abuse Paracentesis 07/20, no SBP Continue spironolactone Titrate lactulose to 2-3 BM per day, continue rifaximin. Not clear if mental slowness related to withdrawal, ammonia level, or Wernicke' s. He seems muc quicker mentally 07/29. (3) Alcohol withdrawal Current Visit: Yes Status: Acute Code(s): F10.239 - ALCOHOL DEPENDENCE WITH WITHDRAWAL, UNSPECIFIED SNOMED Code(s): 446586923 Comment: Extubated 07/26/26. SW to [facility] on alcoholism tx. (4) Hypothyroid Current Visit: Yes Status: Acute Code(s): E03.9 - HYPOTHYROIDISM, UNSPECIFIED SNOMED Code(s): 15613718 Comment: Start levothyroxine 25 mcg per day 07/29/16.
[2016-07-30] MEDS: Levothyroxine TAB* 25 MCG TAB PO SCH (05:28)
[2016-07-30] MEDS: ceFAZolin 2 GM PREMIX(*) 2 GM/50 ML BAG IVPB SCH ×3 (05:28→21:23)
[2016-07-30] MEDS: Heparin VIAL(*) 5000 UNITS/ML VIAL (FIVE THOUSAND) SUBCUT SCH ×3 (05:29→21:23)
[2016-07-30] MEDS: Multivitamins ADULT w/MIN LIQ* 15 ML UDC PO SCH (07:47)
[2016-07-30] MEDS: Folic Acid TAB* 1 MG PO SCH (07:48)
[2016-07-30] MEDS: Lactulose* 15 ML UDC PO SCH ×2 (07:48→09:27)
[2016-07-30] MEDS: RiFAXimin* 550 MG TAB PO SCH ×2 (07:48→21:23)
--- NOTE | 2016-07-30 09:06 | PN ---
Subjective Date of Service: 07/30/16 Interval History: Pt states he had 4-5 BM's yesterday, not as loose as before. No other c/o. Objective Active Medications: Folic Acid (Folvite Tab*) 1 mg PO DAILY [facility] Last Admin: 07/30/16 07:48 Dose: 1 mg Heparin Sodium (Porcine) (Heparin Vial(*)) 5,000 units SUBCUT Q8HR [facility] Last Admin: 07/30/16 05:29 Dose: 5,000 units Heparin Sodium (Porcine) (Heparin Flush Picc/Ml/Cvc(*)) 1 ml FLUSH 0600,1800 [facility] PRN Reason: Protocol Last Admin: 07/30/16 06:43 Dose: 2 ml Cefazolin Sodium/Dextrose (Kefzol Premix(*)) 2 gm in 50 mls @ 100 mls/hr IVPB Q8H [facility] Last Admin: 07/30/16 05:28 Dose: 100 mls/hr Lactulose (Lactulose*) 15 ml PO DAILY [facility] Levothyroxine Sodium (Synthroid Tab*) 25 mcg PO DAILY@0600 [facility] Last Admin: 07/30/16 05:28 Dose: 25 mcg Rifaximin (Xifaxan*) 550 mg PO BID [facility] Last Admin: 07/30/16 07:48 Dose: 550 mg Vital Signs 07/29/16 07/29/16 07/29/16 11:30 16:04 16:06 Temperature 98.3 F 99.4 F Pulse Rate 92 87 Respiratory 16 16 Rate Blood Pressure 119/80 119/76 (mmHg) O2 Sat by Pulse 99 99 Oximetry 07/29/16 07/29/16 07/29/16 19:51 20:00 23:11 Temperature 98.6 F 98.6 F Pulse Rate 93 82 Respiratory 16 16 16 Rate Blood Pressure 120/74 119/72 (mmHg) O2 Sat by Pulse 98 95 Oximetry 07/30/16 07/30/16 07/30/16 03:07 07:28 08:00 Temperature 99.2 F 98.4 F Pulse Rate 82 86 Respiratory 18 20 20 Rate Blood Pressure 120/74 126/79 (mmHg) O2 Sat by Pulse 95 99 Oximetry Oxygen Devices in Use Now: None Appearance: Alert, sitting on the edge of his bed. In good spirits. Looks comfortable. Eyes: No Scleral Icterus Ears/Nose/Mouth/Throat: Clear Oropharnyx, Mucous Membranes Moist Neck: NL Appearance and Movements; NL JVP, No Thyroid Enlargement, Masses Respiratory: Symmetrical Chest Expansion and Respiratory Effort, Clear to Auscultation, Clear to Percussion Cardiovascular: NL Sounds; No Murmurs; No JVD, RRR, No Edema, - Extremities: No Edema, No Clubbing, Cyanosis, - Skin: No Rash or Ulcers, No Nodules or Sclerosis, - Neurological: Alert and Oriented x 3, NL Sensation, - - No asterixis. Result Diagrams: 07/26/16 08:42 07/27/16 06:05 Microbiology and Other Data: Microbiology 07/20/16 14:00 Gram Stain - Final Body Fluid - Peritoneal 07/20/16 06:15 Stool Occult Blood ([place]) - Final Stool Assess/Plan/Problems-Billing Assessment: 51 yo M h/o etoh abuse p/w abdominal bloating found new onset cirrhosis, ascites , 04/05 bcx MSSA, transferred to ICU with DTs and intubated for airway protection 07/21 - Patient Problems (1) Bacteremia Current Visit: Yes Status: Acute Code(s): R78.81 - BACTEREMIA SNOMED Code( s): 3888276 Comment: 3 out of 4 bottles Last day of cefazolin 08/02/16. Note decrease in CRP to 25.98 on 07/30. (2) Cirrhosis Current Visit: Yes Status: Acute Comment: In setting of EtOH abuse Paracentesis 07/20, no SBP Continue spironolactone Titrate lactulose to 2-3 BM per day (dose 15 ml daily as of 07/30), continue rifaximin. Ammonia level 07/31. Not clear if mental slowness was related to withdrawal, ammonia level, or Wernicke's. He seems much quicker mentally 07/29. (3) Alcohol withdrawal Current Visit: Yes Status: Acute Code(s): F10.239 - ALCOHOL DEPENDENCE WITH WITHDRAWAL, UNSPECIFIED SNOMED Code(s): 432782087 Comment: Extubated 07/26/26. SW to [facility] on alcoholism tx. (4) Hypothyroid Current Visit: Yes Status: Acute Code(s): E03.9 - HYPOTHYROIDISM, UNSPECIFIED SNOMED Code(s): 44955654 Comment: Start levothyroxine 25 mcg per day 4/29/17.
[2016-07-31] MEDS: ceFAZolin 2 GM PREMIX(*) 2 GM/50 ML BAG IVPB SCH ×3 (05:03→21:11)
[2016-07-31] MEDS: Heparin VIAL(*) 5000 UNITS/ML VIAL (FIVE THOUSAND) SUBCUT SCH ×3 (05:03→21:12)
[2016-07-31] MEDS: Levothyroxine TAB* 25 MCG TAB PO SCH (05:22)
--- NOTE | 2016-07-31 08:58 | PN ---
Subjective Date of Service: 07/31/16 Interval History: Patient seen this morning. Says he continues to feel improvements. Has been ambulating with a walker with no issues. Has had 2 BMs so far today that have been soft, not watery. No fever or chills. Family History: Unchanged from Admission Social History: Unchanged from Admission Past Medical History: Unchanged from Admission Objective Active Medications: Folic Acid (Folvite Tab*) 1 mg PO DAILY [facility] Heparin Sodium (Porcine) (Heparin Vial(*)) 5,000 units SUBCUT Q8HR [facility] Heparin Sodium (Porcine) (Heparin Flush Picc/Ml/Cvc(*)) 1 ml FLUSH 0600,1800 [facility] Cefazolin Sodium/Dextrose (Kefzol Premix(*)) 2 gm in 50 mls @ 100 mls/hr IVPB Q8H [facility] Lactulose (Lactulose*) 15 ml PO DAILY [facility] Levothyroxine Sodium (Synthroid Tab*) 25 mcg PO DAILY@0600 [facility] Rifaximin (Xifaxan*) 550 mg PO BID [facility] Vital Signs 07/30/16 07/30/16 07/31/16 15:11 23:03 00:40 Temperature 98.4 F 99.6 F Pulse Rate 84 88 Respiratory 16 16 18 Rate Blood Pressure 120/72 119/73 (mmHg) O2 Sat by Pulse 98 95 Oximetry 07/31/16 07/31/16 07/31/16 00:45 05:11 07:53 Temperature 98.8 F Pulse Rate 83 Respiratory 18 16 16 Rate Blood Pressure 114/74 (mmHg) O2 Sat by Pulse 98 Oximetry 07/31/16 08:18 Temperature 98.9 F Pulse Rate 96 Respiratory 18 Rate Blood Pressure 112/70 (mmHg) O2 Sat by Pulse 98 Oximetry Oxygen Devices in Use Now: None Appearance: Middle-aged, M, sitting in bed in NAD Eyes: No Scleral Icterus Ears/Nose/Mouth/Throat: Mucous Membranes Moist Neck: NL Appearance and Movements; NL JVP Respiratory: Symmetrical Chest Expansion and Respiratory Effort, Clear to Auscultation Cardiovascular: NL Sounds; No Murmurs; No JVD, RRR Abdominal: - - Soft, non-tendner, non-distended, mild hepatomegaly, no rebound/ guarding, BS+ Lymphatic: No Cervical Adenopathy Extremities: - - Trace LE edema Skin: No Rash or Ulcers Neurological: Alert and Oriented x 3 Result Diagrams: 07/26/16 08:42 07/27/16 06:05 Microbiology and Other Data: Microbiology 07/20/16 14:00 Gram Stain - Final Body Fluid - Peritoneal 07/20/16 06:15 Stool Occult Blood ([place]) - Final Stool Assess/Plan/Problems-Billing Assessment: 51 yo M h/o etoh abuse p/w abdominal bloating found new onset cirrhosis, ascites , / bcx MSSA, transferred to ICU with DTs and intubated for airway protection 07/21 - Patient Problems (1) Bacteremia Current Visit: Yes Comment: 3 out of 4 bottles Last day of cefazolin 08/02/16. Note decrease in CRP to 25.98 on 07/30. (2) Cirrhosis Current Visit: Yes Comment: In setting of EtOH abuse Paracentesis 07/20, no SBP Spironolactone fell off MAY, will restart at 25 mg daily. Titrate lactulose to 2-3 BM per day (dose 15 ml daily as of 07/30), continue rifaximin. Ammonia level 56 on 07/31. (3) Alcohol withdrawal Current Visit: Yes Comment: Extubated 07/26/26. Declined rehab (4) Hypothyroid Current Visit: Yes Comment: Levothyroxine 25 mcg per day started on 07/29/16. Will need recheck of TFTs in 4-6 weeks. (5) DVT prophylaxis Current Visit: Yes Comment: HSQ Status and Disposition: Inpatient for duration of IV ABx (08/02)
[2016-07-31] MEDS: Spironolactone TAB* 25 MG PO SCH (10:09)
[2016-07-31] MEDS: Folic Acid TAB* 1 MG PO SCH (10:09)
[2016-07-31] MEDS: Lactulose* 15 ML UDC PO SCH (10:09)
[2016-07-31] MEDS: RiFAXimin* 550 MG TAB PO SCH ×2 (10:09→21:12)
[2016-08-01] MEDS: ceFAZolin 2 GM PREMIX(*) 2 GM/50 ML BAG IVPB SCH ×3 (05:15→21:43)
[2016-08-01] MEDS: Levothyroxine TAB* 25 MCG TAB PO SCH (05:50)
[2016-08-01] MEDS: Heparin VIAL(*) 5000 UNITS/ML VIAL (FIVE THOUSAND) SUBCUT SCH ×3 (05:50→21:43)
[2016-08-01] MEDS: RiFAXimin* 550 MG TAB PO SCH ×2 (08:28→21:43)
[2016-08-01] MEDS: Lactulose* 15 ML UDC PO SCH (08:28)
[2016-08-01] MEDS: Folic Acid TAB* 1 MG PO SCH (08:28)
[2016-08-01] MEDS: Spironolactone TAB* 25 MG PO SCH (08:28)
--- NOTE | 2016-08-01 09:49 | PN ---
Subjective Date of Service: 08/01/16 Interval History: Patient seen this morning, pleased with his PT progress. Reports 3 normal, soft BMs yesterday. Eating well. No complaints. Family History: Unchanged from Admission Social History: Unchanged from Admission Past Medical History: Unchanged from Admission Objective Active Medications: Folic Acid (Folvite Tab*) 1 mg PO DAILY [facility] Heparin Sodium (Porcine) (Heparin Vial(*)) 5,000 units SUBCUT Q8HR [facility] Heparin Sodium (Porcine) (Heparin Flush Picc/Ml/Cvc(*)) 1 ml FLUSH 0600,1800 [facility] Cefazolin Sodium/Dextrose (Kefzol Premix(*)) 2 gm in 50 mls @ 100 mls/hr IVPB Q8H [facility] Lactulose (Lactulose*) 15 ml PO DAILY [facility] Levothyroxine Sodium (Synthroid Tab*) 25 mcg PO DAILY@0600 [facility] Rifaximin (Xifaxan*) 550 mg PO BID [facility] Spironolactone (Aldactone Tab*) 25 mg PO DAILY [facility] Vital Signs 07/31/16 07/31/16 07/31/16 11:29 15:13 19:51 Temperature 98.2 F 98.2 F 98.7 F Pulse Rate 86 93 103 Respiratory 20 20 24 Rate Blood Pressure 95/63 114/71 117/75 (mmHg) O2 Sat by Pulse 99 99 97 Oximetry 08/01/16 08/01/16 08:00 08:29 Temperature 98.6 F Pulse Rate 88 Respiratory 16 16 Rate Blood Pressure 105/68 (mmHg) O2 Sat by Pulse 98 Oximetry Oxygen Devices in Use Now: None Appearance: Middle-aged, M, laying in bed in NAD Ears/Nose/Mouth/Throat: Mucous Membranes Moist Neck: NL Appearance and Movements; NL JVP Respiratory: Symmetrical Chest Expansion and Respiratory Effort, Clear to Auscultation Cardiovascular: NL Sounds; No Murmurs; No JVD, RRR Abdominal: - - Soft, mild distension, hepatomegaly, BS+ Lymphatic: No Cervical Adenopathy Extremities: - - Trace LE edema Neurological: Alert and Oriented x 3 Result Diagrams: 07/26/16 08:42 07/27/16 06:05 Microbiology and Other Data: Assess/Plan/Problems-Billing Assessment: 51 yo M h/o etoh abuse p/w abdominal bloating found new onset cirrhosis, ascites , 1/4 bcx MSSA, transferred to ICU with DTs and intubated for airway protection 07/21 - Patient Problems (1) Bacteremia Current Visit: Yes Comment: 3 out of 4 bottles Last day of cefazolin 08/02/16. Note decrease in CRP to 25.98 on 07/30. (2) Cirrhosis Current Visit: Yes Comment: In setting of EtOH abuse Paracentesis 07/20, no SBP Continue Spironolactone 25 mg daily. Titrate lactulose to 2-3 BM per day (dose 15 ml daily as of 07/30), continue rifaximin. Ammonia level 56 on 07/31. (3) Alcohol withdrawal Current Visit: Yes Comment: Extubated 07/26/26. Declined rehab (4) Hypothyroid Current Visit: Yes Comment: Levothyroxine 25 mcg per day started on 07/29/16. Will need recheck of TFTs in 4-6 weeks. (5) DVT prophylaxis Current Visit: Yes Comment: HSQ Status and Disposition: Inpatient for duration of IV ABx (08/02)
[2016-08-02] MEDS: Heparin VIAL(*) 5000 UNITS/ML VIAL (FIVE THOUSAND) SUBCUT SCH (05:25)
[2016-08-02] MEDS: Levothyroxine TAB* 25 MCG TAB PO SCH (05:25)
[2016-08-02] MEDS: ceFAZolin 2 GM PREMIX(*) 2 GM/50 ML BAG IVPB SCH (05:25)
[2016-08-02 08:14] VITALS: BP 109/64
[2016-08-02] MEDS: Lactulose* 15 ML UDC PO SCH (08:18)
[2016-08-02] MEDS: Folic Acid TAB* 1 MG PO SCH (08:19)
[2016-08-02] MEDS: RiFAXimin* 550 MG TAB PO SCH (08:19)
[2016-08-02] MEDS: Spironolactone TAB* 25 MG PO SCH (08:19)
--- NOTE | 2016-08-02 23:46 | DS ---
DISCHARGE SUMMARY: DATE OF ADMISSION: 07/19/16 DATE OF DISCHARGE: 08/02/16 NEW PRIMARY CARE PROVIDER: Nils Pettit NP DISCHARGE DIAGNOSES: 1. Alcoholism. 2. Alcohol withdrawal progressing with delirium tremens, requiring intubation for airway protection. 3. Alcoholic liver disease. 4. Hepatic encephalopathy. 5. MSSA septicemia. 6. Coagulopathy secondary to alcohol abuse. 7. Hyponatremia secondary to alcohol abuse. 8. Moderate protein-calorie malnutrition. 9. Possible aspiration pneumonitis. 10. Gingival bleeding. 11. Possible hypothyroidism. 12. Portal hypertension. 13. Liver cirrhosis. MEDICATION LIST: All of these medications are new: 1. Folic acid 1 mg p.o. daily. 2. Levothyroxine 25 mcg p.o. daily. 3. Rifaximin 550 mg p.o. b.i.d. 4. Spironolactone 25 mg p.o. daily. 5. Thiamine 100 mg p.o. daily. HOSPITAL COURSE: Mr. Cross is a 51-year-old male with a past medical history of alcohol abuse, who presented to the emergency room with 3 to 4 weeks of abdominal distention associated with constipation. Most of the history was obtained from his as the patient was having difficult time staying awake during the interview. Family denied confusion, but stated that the patient was sleeping a lot during the day. The patient has a history of drinking alcohol daily, 5 to 6 drinks a day. The patient was admitted for further workup. CT of the abdomen and pelvis showed hepatosplenomegaly and findings consistent with cirrhosis. In addition, there are multiple small hepatic nodules. Recommendation was for an MRI of the liver with and without contrast for further evaluation and this can be done as outpatient. Splenic varices consistent with portal hypertension. The patient had ultrasound-guided paracentesis performed with drainage of 2 L of serous fluid. Pathology showed only inflammatory cells, no signs of malignancy. The fluid had 359 cells, but only 2% neutrophils. The patient had signs of alcohol withdrawal despite an initial alcohol level of 229. A day prior to admission, he was noted to be tremulous, anxious and on , he had worsening of his symptoms and had to be transferred to the intensive care unit as he was obtunded. He was intubated by Dr. West and his impression was that the patient had developed DTs overnight, became more obtunded requiring intubation. At that point, the patient was also noted to be growing MSSA on his blood cultures and he had been started on cefazolin. The patient stayed in the intensive care unit until 07/27/16 and he had progressive improvement of his symptoms. He was extubated on 07/26/16 and did well after. The patient was also found to have hepatic encephalopathy with an ammonia level of 145 and he responded well to lactulose, but he developed significant diarrhea , so his lactulose dose was decreased and rifaximin was added to his regimen. As the patient's blood cultures had grown Staphylococcus aureus, an Infectious Disease consultation was requested and the patient was seen by Dr. Santacruz. His impression was the patient had Staphylococcal septicemia present on admission and this had already cleared with antibiotics. His ascites did not show evidence of SBP. He has no spine tenderness or joint tenderness. No history of prosthetic material. No murmur. No peripheral stigmata of endocarditis, so he felt that a transesophageal echocardiogram to rule out endocarditis was not indicated. 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 He recommended 14 days treatment with IV cefazolin. The patient had hepatitis B and C serologies that were nonreactive. The patient continued to improve and he also had progressive physical therapy. At this point, he is able to ambulate with a rolling walker. He was able to do stairs with physical therapy and he is feeling much improved. He was also found to have elevation of his TSH at 8.6 and he was started on low - dose levothyroxine. The recommendation was to repeat his TFTs in 4 weeks, but this could also represent sick euthyroid syndrome considering his prolonged and complicated hospital stay. The patient was felt to be stable for discharge at this time. He states that he is not interested in alcohol rehab and he feels very motivated to quit at this time. He is not interested in information about AA or [facility] as he is convinced that he will be able to quit on his own. The patient is stable to be discharged home today. PHYSICAL EXAMINATION: Vital Signs: Temperature 98.2, heart rate is 88, respiratory rate 16, oxygen saturation 99% on room air, blood pressure 109/64. General: The patient is a middle-aged male, sitting up in bed, in no acute distress. CVS: Normal S1, S2. Regular rate and rhythm. No murmurs. Chest: Breath sounds present bilaterally with no added sounds. Abdomen: Soft with hepatomegaly, mild distention. Bowel sounds are present. Extremities: There is trace bilateral lower extremity edema. Neuro: He is alert and oriented x3. Able to move all 4 extremities. DIET: Regular diet. ACTIVITIES: As tolerated. DISPOSITION: To home. STATUS IN THE HOSPITAL: Inpatient. Please keep in mind this is a summarized version of this patient's prolonged and complex hospital stay. If you need more information, please feel free to call me at [phone] or please obtain the full medical records. The patient will establish care with Nils Pettit NP and his first appointment is scheduled for 08/08/16 at 9:30 a.m. TIME SPENT: Approximately 50 minutes were spent to complete the discharge. CC: Nils Pettit NP* [id number]/[facility] #: [id number] MTDD
== END 2016-08-02 09:50 | disposition home health service (06) | DRG 280 ==
LOC: ED 09:02 → MEDTELE 12:50 → ICU 07-21 09:40 → MED 07-27 11:16
PROVIDERS: ADMIT Hospitalist; ATTEND Internal Medicine
PROC: 0W9G3ZZ Drainage of Peritoneal Cavity, Percutaneous Approach (ICD-10-PCS; 2016-07-20)
PROC: 5A1955Z Respiratory Ventilation, Greater than 96 Consecutive Hours (ICD-10-PCS; principal; 2016-07-21)
PROC: 0BH17EZ Insertion of Endotracheal Airway into Trachea, Via Natural or Artificial Opening (ICD-10-PCS; 2016-07-21)
DX: K70.31 Alcoholic cirrhosis of liver with ascites (principal); J96.01 Acute respiratory failure with hypoxia; J69.0 Pneumonitis due to inhalation of food and vomit; F10.231 Alcohol dependence with withdrawal delirium; E87.1 Hypo-osmolality and hyponatremia; D68.4 Acquired coagulation factor deficiency; K76.6 Portal hypertension; E44.0 Moderate protein-calorie malnutrition; R78.81 Bacteremia; I86.8 Varicose veins of other specified sites; E07.81 Sick-euthyroid syndrome; K06.8 Other specified disorders of gingiva and edentulous alveolar ridge; K72.90 Hepatic failure, unspecified without coma; E03.9 Hypothyroidism, unspecified; B95.61 Methicillin susceptible Staphylococcus aureus infection as the cause of diseases classified elsewhere; Y90.7 Blood alcohol level of 200-239 mg/100 ml; D64.89 Other specified anemias; R19.7 Diarrhea, unspecified; Z68.29 Body mass index [BMI] 29.0-29.9, adult; Z82.49 Family history of ischemic heart disease and other diseases of the circulatory system; Z83.3 Family history of diabetes mellitus; Z80.9 Family history of malignant neoplasm, unspecified; Z87.891 Personal history of nicotine dependence
CPT/HCPCS: 36415; 36600; 49083; 71010; 74177; 76705; 80048; 80053; 80076; 80320; 81003; 82042; 82105; 82140; 82270; 82272; 82803; 83605; 83690; 83735; 84100; 84443; 84484; 85025; 85027; 85610; 86140; 86703; 86706; 86803; 86850; 86900; 86901; 87040; 87070; 87077; 87086; 87150; 87185; 87186; 87205; 87340; 87641; 88112; 89051; 93005; 94002; 94003; 94760; A9270-GY; C1751; G0480; J0690; J1644; J1940; J2060; J2270; J2543; J2704; J3010; J3430; Q9967